=== PATIENT | male | born 1980 | race Caucasian/White ===

== ENCOUNTER → 2017-08-29 15:38 | Outpatient (CLI) | payer OTHER, SELFPAY ==
[2017-08-29 17:16] LABS: Absolute Lymphocyte Count 2.21 X10^3/ul (0.83-4.51); Absolute Neutrophil Count 3.2 X10^3/uL (2.0-7.7); Basophil# 0.02 X10^3/uL; Basophil% 0.3 % (0-1); Eosinophil# 0.41 X10^3/uL; Eosinophils% 6.5 % (0-5); Hematocrit 43.9 % (40-54); Hemoglobin 15.4 g/dl (13.0-16.5); Lymphocyte # 2.21 X10^3/ul (4.0); Lymphocyte % 35.1 % (19-41); Mean Corp Hgb Conc 35.1 g/gl (32-36); Mean Corpuscular Volume 91.3 fL (80-94); Mean Platelet Vol. 9.9 fl (6.2-12.0); Monocyte# 0.49 X10^3/uL; Monocyte% 7.8 % (0-10); Neutrophil # 3.15 X10^3/uL (2.7-7.7); Neutrophil % 50.1 % (47-70); Platelet Count 255 K/mm3 (150-450); RBC Distribution Width CV 13.3 % (11.6-14.6); RBC Distribution Width SD 43.9 fl (35.1-43.9); Red Blood Count 4.81 M/mm3 (4.6-6.2); White Blood Count 6.3 K/mm3 (4.4-11.0)
[2017-08-29 17:18] LABS: POSITIVE COUNT NO; POSITIVE DIFFERENTIAL NO; POSITIVE MORPHOLOGY NO
[2017-08-29 18:08] LABS: Thyroid Stim Hormone (TSH) 2.29 uIU/mL (0.358-3.74)
== END ==
PROVIDERS: Family Provider Family Medicine; PCP Family Medicine; Visit Provider Family Medicine
DX: R59.0 Localized enlarged lymph nodes (principal); R63.4 Abnormal weight loss
CPT/HCPCS: 36415; 84443; 85025

== ENCOUNTER 2017-12-27 08:24 | Emergency (ER) | payer OTHER, SELFPAY ==
[2017-12-27 08:25] VITALS: BP 187/101; PULSE 108; RESP 18; TEMP 36.6; O2SAT 96; BMI 29.9
--- NOTE | 2017-12-27 08:33 | RAD_ITS ---
STUDY: X-RAY - RIGHT HAND REASON FOR EXAM: Male, 37 years old. Thumb laceration TECHNIQUE: 3 view(s) of the hand. COMPARISON: None. FINDINGS: No radiopaque foreign bodies are seen in the soft tissues of the hand especially at the thumb. There are no acute fractures or dislocations and no pulmonary disease.. RAD/Hand Min 3 Views IMPRESSION: No radiopaque foreign bodies in the soft tissues of the hand. No fracture Electronically Signed: Delgado Miranda, at 9:04 EDT Tel , Service support ,
--- NOTE | 2017-12-27 08:40 | ED.VISSUMM ---
- ER Visit Summary Date of Service: 12/27/17 Chief Complaint: Right thumb laceration History of Present Illness: The patient is a 37 M who was walking down some steps and tripped and fell onto a toolbox and caught himself with his right hand. He sustained a laceration at the base of the right thumb. Has some mild pain. Denies any further symptoms. Last tetanus unknown Physical Examination: Vital signs reviewed. Right thumb exam reveals tenderness to the base of the right thumb. Pain with range of motion. He does have a 2.5 cm laceration to the right thumb base which goes into the webspace. Test Results: Right hand x-ray reveals no foreign body or fracture Emergency Department Course and Treatment: X-rays reveal no foreign bodies or fracture. Patient was given Advil and updated on his tetanus. Patient had laceration repaired. Lidocaine was used to anesthetize area. 8, 4-0 suture were placed. Good wound approximation. Patient will have these out in 7-10 dayss Treatment Plan: [] Disposition: Discharge Impression: Right thumb laceration, 2.5 cm Laceration repair by ED physician This note was generated with [employer] dictation software. It may contain incorrect words, spelling, and punctuation that were not noted in review of the chart prior to signing ED Disposition - Plan for ED Patient: Chief Complaint: Laceration Referrals: Bart Lauren MD [Primary Care Provider] -
[2017-12-27] MEDS: Diphth,Pertuss(Acell),Tet Vac 0.5 ML Vial IM (09:15)
[2017-12-27] MEDS: Ibuprofen 200 MG Tablet 400 MG PO (09:17)
--- NOTE | 2017-12-27 09:26 | ED.DEP ---
ED Disposition - Plan for ED Patient: Disposition: Home or Assisted Living Chief Complaint: Laceration Instructions: ED Laceration All Referrals: Bart Lauren MD [Primary Care Provider] -
[2017-12-27 09:44] VITALS: RESP 16
== END 2017-12-27 09:44 | disposition home or self-care (01) ==
PROVIDERS: Emergency Provider Emergency Medicine; Family Provider Family Medicine; PCP Family Medicine
DX: S61.011A Laceration without foreign body of right thumb without damage to nail, initial encounter (principal); W01.198A Fall on same level from slipping, tripping and stumbling with subsequent striking against other object, initial encounter; Y93.01 Activity, walking, marching and hiking; Y92.9 Unspecified place or not applicable; K21.9 Gastro-esophageal reflux disease without esophagitis
CPT/HCPCS: 12001; 73130; 90471; 90715; 99284; A4216

== ENCOUNTER → 2020-01-19 13:50 | Outpatient (CLI) | payer OTHER, SELFPAY ==
--- NOTE | 2020-01-19 13:55 | RAD_ITS ---
STUDY: X-RAY - THORACIC SPINE REASON FOR EXAM: Male, 39 years old. Thoracic back pain x 4 months TECHNIQUE: 3 view(s) of the thoracic spine were obtained. COMPARISON: None. FINDINGS: Normal kyphosis of the thoracic spine. There is no substantial scoliosis. Normal thoracic vertebrae and endplates. Normal disc space heights. The soft tissue structures are unremarkable. RAD/Thoracic Spine 3 Views IMPRESSION: Normal x-ray examination of the thoracic spine. Electronically Signed: Jose Guillen, at 15:12 EDT , Service support ,
--- NOTE | 2020-01-19 13:55 | RAD_ITS ---
STUDY: X-RAY CHEST REASON FOR EXAM: Male, 39 years old. Thoracic back pain x 4 months TECHNIQUE: PA and lateral views of the chest. COMPARISON: None. FINDINGS: Pectus excavatum. The lungs are clear and expanded. Scattered calcified granulomas. There is no demonstrated pleural abnormality. Normal size heart. Normal mediastinum and emma. Normal visualized pulmonary arteries. Normal visualized aortic arch and descending thoracic aorta. Normal visualized thoracic spine. Normal visualized ribs, clavicles, and shoulders. There is no demonstrated abnormality of the visualized soft tissue structures of the upper abdomen. RAD/Chest PA and Lateral IMPRESSION: Normal x-ray examination of the chest. Electronically Signed: Jose Guillen, at 15:12 EDT , Service support ,
== END ==
PROVIDERS: PCP Family Medicine; Referring Provider Family Medicine; Visit Provider Family Medicine
DX: M54.6 Pain in thoracic spine (principal)
CPT/HCPCS: 71046; 72072

== ENCOUNTER → 2020-11-29 08:26 | Outpatient (CLI) | payer OTHER, SELFPAY ==
--- NOTE | 2020-11-29 08:30 | RAD_ITS ---
STUDY: DOUBLE CONTRAST BARIUM ESOPHAGRAM REASON FOR EXAM: Male, 40 years old. DYSPHAGIA RADIATION DOSAGE (If Supplied By Facility): CTDIvol = ( ) mGy, DLP = ( ) mGycm. Individualized dose optimization techniques were used for this CT.? FLUOROSCOPY TIME (if supplied): ( 54 ) seconds TECHNIQUE: Air-contrast COMPARISON: None. FINDINGS: Swallowing was initiated normally. No nasopharyngeal reflux or aspiration. No Zenker''s diverticulum noted on the lateral view. Normal peristaltic activity is noted in the esophagus. No evidence of a hiatal hernia, there was some GE reflux with increased intrathoracic pressure. No stricture or mass lesion noted. 13 mm barium pill passed through the esophagus without difficulty. RAD/Esophagus Dual Contrast IMPRESSION: Minimal GE reflux otherwise unremarkable study Electronically Signed: Chadwick Sin MD at 9:55 EDT , Service support ,
== END ==
PROVIDERS: PCP Family Medicine; Referring Provider Otolaryngology; Visit Provider Otolaryngology
DX: R13.10 Dysphagia, unspecified (principal)
CPT/HCPCS: 74221

== ENCOUNTER → 2022-08-30 | Outpatient (CLI) | payer OTHER, SELFPAY ==
[2022-08-30 12:42] LABS: ALB/GLOB Ratio 1.1 RATIO (0.9-2.4); AST(SGOT) 29 U/L (15-37); Alanine Aminotransfer ALT/SGPT 30 U/L (16-61); Albumin, Serum 3.8 g/dL (3.2-5.0); Alkaline Phosphatase 57 U/L (45-117); Anion Gap 6 (5-15); BUN 16 mg/dL (7-18); BUN/Creat Ratio 17.1 RATIO (10-20); Calcium,Total 9.1 mg/dL (8.5-10.1); Chloride 105 mmol/L (98-107); Creatinine, Serum 0.93 mg/dL (0.70-1.30); EST Glomerular Filtration Rate 93 mL/min (>60); Est Glom Filt Rate - Afr Amer 113 mL/min (>60); Globulin 3.6 g/dL (2.2-4.2); Glucose 94 mg/dL (74-106); Potassium 4.8 mmol/L (3.5-5.1); Protein, Total 7.4 g/dL (6.4-8.2); Sodium Level 139 mmol/L (136-145)
[2022-08-30 12:44] LABS: Absolute Lymphocyte Count 1.56 X10^3/uL (0.83-4.51); Absolute Neutrophil Count 1.8 X10^3/uL (2.0-7.7); Basophil# 0.03 X10^3/uL; Basophil% 0.8 % (0-1); Eosinophil# 0.13 X10^3/uL; Eosinophils% 3.3 % (0-5); Hematocrit 42.7 % (40-54); Hemoglobin 14.1 g/dL (13.0-16.5); Lymphocyte # 1.56 X10^3/ul (0.83-4.51); Mean Corpuscular Hgb 30.6 pg (27.0-32.0); Mean Corpuscular Volume 92.6 fL (80-94); Mean Platelet Vol. 10.6 fl (6.2-12.0); Monocyte# 0.39 X10^3/uL; NRBC Flagged by Analyzer 0 % (0-5); Neutrophil # 1.78 X10^3/uL (2.7-7.7); Neutrophil % 45.6 % (47-70); Platelet Count 242 K/mm3 (150-450); RBC Distribution Width CV 13.4 % (11.6-14.6); RBC Distribution Width SD 45.6 fl (35.1-43.9); Red Blood Count 4.61 M/mm3 (4.6-6.2); White Blood Count 3.9 K/mm3 (4.4-11.0)
== END | disposition home or self-care (01) ==
PROVIDERS: PCP Family Medicine; Visit Provider Family Medicine
DX: I10 Essential (primary) hypertension (principal)
CPT/HCPCS: 36415; 80053; 85025

== ENCOUNTER → 2023-06-10 | Outpatient (CLI) | payer OTHER, SELFPAY ==
[2023-06-10 17:43] LABS: Absolute Lymphocyte Count 2.33 X10^3/uL (0.83-4.51); Absolute Neutrophil Count 3.2 X10^3/uL (2.0-7.7); Basophil# 0.03 X10^3/uL; Basophil% 0.5 % (0-1); Eosinophil# 0.14 X10^3/uL; Eosinophils% 2.2 % (0-5); Hematocrit 41.4 % (40-54); Lymphocyte # 2.33 X10^3/ul (0.83-4.51); Lymphocyte % 37.2 % (19-41); Mean Corp Hgb Conc 31.4 g/dL (32-36); Mean Corpuscular Hgb 28.5 pg (27.0-32.0); Mean Corpuscular Volume 90.8 fL (80-94); Mean Platelet Vol. 10.1 fl (6.2-12.0); Monocyte# 0.58 X10^3/uL; Monocyte% 9.3 % (0-10); NRBC Flagged by Analyzer 0 % (0-5); Neutrophil # 3.17 X10^3/uL (2.7-7.7); Neutrophil % 50.6 % (47-70); Platelet Count 275 K/mm3 (150-450); RBC Distribution Width CV 14.3 % (11.6-14.6); RBC Distribution Width SD 47.8 fl (35.1-43.9); Red Blood Count 4.56 M/mm3 (4.6-6.2); White Blood Count 6.3 K/mm3 (4.4-11.0)
[2023-06-10 18:03] LABS: AST(SGOT) 17 U/L (15-37); Alanine Aminotransfer ALT/SGPT 28 U/L (16-61); Albumin, Serum 3.7 g/dL (3.2-5.0); Alkaline Phosphatase 53 U/L (45-117); Anion Gap 6 (5-15); BUN 13 mg/dL (7-18); BUN/Creat Ratio 14.3 RATIO (10-20); Calcium,Total 8.8 mg/dL (8.5-10.1); Chloride 104 mmol/L (98-107); Creatinine, Serum 0.91 mg/dL (0.70-1.30); EST Glomerular Filtration Rate 96 mL/min (>60); Est Glom Filt Rate - Afr Amer 116 mL/min (>60); Globulin 3.8 g/dL (2.2-4.2); Glucose 85 mg/dL (74-106); Protein, Total 7.5 g/dL (6.4-8.2); Sodium Level 139 mmol/L (136-145)
== END | disposition home or self-care (01) ==
LOC: BFHLAB 15:10
PROVIDERS: PCP Family Medicine; Visit Provider Family Medicine
DX: I10 Essential (primary) hypertension (principal)
CPT/HCPCS: 36415; 80053; 85025

== ENCOUNTER → 2023-06-18 | Outpatient (CLI) | payer OTHER, SELFPAY ==
--- NOTE | 2023-06-18 11:58 | MRI_ITS ---
EXAM: MR LUMBAR SPINE WITHOUT INTRAVENOUS CONTRAST CLINICAL INDICATION: LOW BACK PAIN, w/o injury TECHNIQUE: Multiplanar and multisequence MR images of the lumbar spine without intravenous contrast. Magnetic field strength 1.5 T. COMPARISON: X-ray of the lumbar spine 04/30/2023. FINDINGS: VERTEBRAE: Unremarkable. Vertebral body heights are preserved. Normal vertebral bodies and posterior elements. Normal alignment. No spondylolisthesis. There is preservation of the normal lumbar lordosis. SPINAL CORD: Unremarkable. Normal position and signal intensity of the conus medullaris. SOFT TISSUES: Unremarkable. DISCS/SPINAL CANAL/NEURAL FORAMINA: L1-L2: Unremarkable. Normal disc height and morphology. Normal spinal canal and lateral recesses. Normal neuroforamina. L2-L3: Unremarkable. Normal disc height and morphology. Normal spinal canal and lateral recesses. Normal neuroforamina. L3-L4: Unremarkable. Normal disc height and morphology. Normal spinal canal and lateral recesses. Normal neuroforamina. L4-L5: Unremarkable. Normal disc height and morphology. Normal spinal canal and lateral recesses. Normal neuroforamina. L5-S1: Unremarkable. Normal disc height and morphology. Normal spinal canal and lateral recesses. Normal neuroforamina. MRI/Spine Lumbar (Routine) IMPRESSION: Unremarkable MRI of the lumbar spine. Electronically Signed: Cosntantino Christiansen MD at 20:49 EST ,
--- NOTE | 2023-06-18 12:00 | MRI_ITS ---
STUDY: MRI ARTHROGRAM OF THE LEFT HIP REASON FOR EXAM: Male, 43 years old. Pain, left hip and back pain without injury x 2-3 months, throbbing to sharp at times. TECHNIQUE: 7 mL of dilute Clariscan contrast was injected into the left hip joint. MRI was obtained in all 3 orthogonal planes. COMPARISON: None. FINDINGS: There is a suspected tear of the left anterior acetabular labrum (MINNIE T1 series 8 image 13). There is a multiseptated paralabral dissecting superiorly, overall measuring 0.6 cm AP, 0.7 cm transverse, and 4.5 cm craniocaudad (sagittal T2 series 6 images 15-18; coronal T2 series 4 images 14-18). Intact left hip joint without articular joint space narrowing. Normal acetabulum. Normal femoral head. Normal femoral neck and intratrochanteric region. There is no demonstrated fracture. Normal gluteus minimus, medius and iliopsoas tendons and distal insertions. There is no trochanteric, iliopsoas or iliopectineal bursitis. Normal superior and inferior pubic rami. Normal pubic symphysis. Normal ischial tuberosity. Normal origin of the hamstring tendons. Normal visualized iliac wing, sacroiliac joint, and sacral ala. Normal visualized soft tissue structures of the pelvis. MRI/Lower Ext/Jt Only/W Contrast IMPRESSION: Suspected tear of the left anterior acetabular labrum, with an adjacent 0.6 x 0.7 x 4.5 cm multiseptated paralabral cyst dissecting superiorly. Electronically Signed: Mark Laughlin MD at 14:51 EST ,
--- NOTE | 2023-06-18 12:50 | RAD_ITS ---
CLINICAL HISTORY: Male, 43 years old. Left hip arthrogram. PROCEDURE: ARTHROGRAM - LEFT HIP CONSENT: Procedure as well as the benefits and possible complications including infection and bleeding were explained to the patient. Informed consent was obtained. FLUOROSCOPY TIME (if supplied): (79 seconds) minutes/seconds. 23.76 mGy Injection Information: 10 cc of a dilute MRI contrast. Number of images obtained: One TECHNIQUE: (All elements of maximal sterile barrier technique followed, including US elements as applicable) The supine position. The overlying skin was prepped and draped in the usual sterile fashion. Following local anesthetic application, left. 2 cc of Isovue 300 was injected for confirmation. This, 10 cc of dilute MRI contrast was injected. The patient tolerated the procedure well. RAD/Arthrogram Hip w/ MRI IMPRESSION: Successful left hip arthrogram for MRI examination. The patient tolerated the procedure well. Electronically Signed: Jose Guillen MD at 13:35 EST ,
[2023-06-18] MEDS: Lidocaine 2% (5ml sdv) 5 ML VIAL.MPF (13:00)
[2023-06-18] MEDS: Iopamidol 10 ML in Syringe 1 EACH 600 ML INTRAARTIC (13:04)
[2023-06-18] MEDS: Gadoterate Meglumine Diluted 10 ML, Iopamidol 5 ML, Lidocaine 1% (20 ml mdv) 5 ML, Epin... INTRAARTIC (13:04)
== END | disposition home or self-care (01) ==
LOC: MRI 11:39
PROVIDERS: PCP Family Medicine; Referring Provider Physician Assistant Surgical; Visit Provider Physician Assistant Surgical
DX: N28.9 Disorder of kidney and ureter, unspecified (principal); M54.59 Other low back pain; M25.852 Other specified joint disorders, left hip
CPT/HCPCS: 27093; 72148; 73722; 77002; A9575; Q9967

== ENCOUNTER → 2025-01-11 | Outpatient (CLI) | payer OTHER, SELFPAY ==
[2025-01-11 15:51] LABS: Hematocrit 40.0 % (40-54); Hemoglobin 13.0 g/dL (13.0-16.5); Immature Granulocytes Count 0.010 X10^3/uL (0.0-0.0); Immature Reticulocyte Fraction 8.70 % (3.00-15.90); Mean Corp Hgb Conc 32.5 g/dL (32-36); Mean Corpuscular Volume 79.8 fL (80-94); Mean Platelet Vol. 9.6 fl (6.2-12.0); NRBC Flagged by Analyzer 0 % (0-5); Platelet Count 367 K/mm3 (150-450); RBC Distribution Width CV 18.1 % (11.6-14.6); RBC Distribution Width SD 52.2 fl (35.1-43.9); Red Blood Count 5.01 M/mm3 (4.6-6.2); Reticulocyte Count 0.67 % (0.5-1.5); White Blood Count 4.3 K/mm3 (4.4-11.0)
[2025-01-11 17:06] LABS: FOLATES,SERUM (FOLIC ACID) 5.86 ng/mL (4.60-34.80); Iron 30 ug/dL (65-175); Iron Binding Capacity,Total 448 ug/dL (250-450); Iron Binding Capacity,Unsat 418 ug/dL (228-428)
[2025-01-11 17:08] LABS: Ferritin 15 ng/mL (37-417); Vitamin B12 326 pg/mL (180-914)
== END | disposition home or self-care (01) ==
PROVIDERS: PCP Family Medicine; Visit Provider Family Medicine
DX: D64.9 Anemia, unspecified (principal)
CPT/HCPCS: 36415; 82607; 82728; 82746; 83540; 83550; 85025; 85045

== ENCOUNTER 2025-03-10 09:22 | Day surgery (SDC) | payer OTHER, SELFPAY ==
--- NOTE | 2025-03-09 13:46 | PAT.ANE_ITS ---
Pre-Assessment Diagnosis/Proposed Procedure Planned Operative Procedure(s): EGD/CSCOPE Anesthesia History Anesthesia History - data entry representative: Anesthesia History - data entry representative Hx Hospitalization No 03/09/25 09:49 Any Problems With Anesthesia No 03/09/25 09:49 Cholinesterase deficiency No 03/09/25 09:49 You/Your Family Experience No 03/09/25 09:49 fever (hyperthermia) with Relationship Recent Exposure to Contagious Disease Does patient have nerve No 03/09/25 09:49 stimulator Patient instructed to have device shut off --Does patient have Pacemaker or ICD? When Was Last Pacemaker Check QUESTION #4 FULL TEXT: You/Your Family Experience fever (hyperthermia) with Anesthesia Last Oral Intake Last Oral intake: Last Oral Intake NPO since Meds taken in AM with sips of water? Meds patient instructed to take am of surgery PONV PONV - data entry representative: PONV - data entry representative Female No 03/09/25 09:49 HX of Motion Sickness No 03/09/25 09:49 HX of N/V After Surgery No 03/09/25 09:49 Non-Smoker Yes 03/09/25 09:49 Duration of Surgery greater No 03/09/25 09:49 than 60 minutes Number of Risk Factors 1 03/09/25 09:49 PONV Score Low Risk 03/09/25 09:49 Height & Weight Height & Weight: Anesthesia: Height & Weight Height 5 ft 7 in 01/17/25 09:08 Respiratory Assessment Respiratory Assessment - data entry representative: Respiratory Tract Infection Hx - data entry representative Hx Respiratory Tract Infection No 03/09/25 09:49 STOP Sleep Apnea STOP Sleep Apnea - data entry representative: STOP Sleep Apnea - data entry representative Hx Hypertension Yes: CONTROLLED WITH MED 03/09/25 09:49 Hx Sleep Apnea No 03/09/25 09:49 CPAP BIPAP Do you snore loudly (louder No 03/09/25 09:49 than talking or can be heard Do you often feel tired/ No 03/09/25 09:49 fatigued/ sleepy during daytime? Has anyone observed you stop No 03/09/25 09:49 breathing during sleep? STOP Results Negative 03/09/25 09:49 QUESTION #5 FULL TEXT : Do you snore loudly (louder than talking or can be heard through closed doors)? Tobacco Use History Tobacco Use History - data entry representative: Tobacco Use History - data entry representative Tobacco Use Smoking Status Former smoker 03/09/25 09:49 Hx Tobacco Use No 03/09/25 09:49 Years Smoking Packs Smoked per Day Smoking Cessation Date was Yes - quit smoking within 15 03/09/25 09:49 within the last 15 years years Hx Smoking Cessation Date 07/14/17 03/09/25 09:49 Hx Smoking Cessation Counseling Hematologic Medial History Hematologic Hx - data entry representative: Hematologic Medical Hx - rn documentation Hx of Blood Transfusion No 03/09/25 09:49 Hx of Transfusion in last 3 No 03/09/25 09:49 Months Date of Last Transfusion (if within last 3 months) Ever experience any problems No 03/09/25 09:49 with transfusion(s)? Specify any problems Hx of Preganancy in last 3 N/A 03/09/25 09:49 Months Nurse Filling Out Transfusion DSCHRIBER 03/09/25 09:49 & Questions: Date: 03/09/25 03/09/25 09:49 Time: 09:50 03/09/25 09:49 Patient unable to answer at this time (ie. confused, unrespo /Reproduction History /Reproductive History - data entry representative: /Reproductive Hx- data entry representative Hx Now No 03/09/25 09:49 Gestational Age (in weeks): EDC: Hx Hx Para Hx Section SAB No 03/09/25 09:49 [facility] Medical History (Updated 03/09/25 @ 09:55 by Lizette Peoples) Alcohol use Arthritis Low iron History of ulceration Former smoker History of pain when walking History of stress test History of gastroesophageal reflux (GERD) Hypertension History of fracture of arm Home Medications ?Medication ?Instructions ?Recorded ?Last Taken ?Type amlodipine 5 mg tablet 5 mg PO DAILY 03/08/21 Unkno wn History losartan 25 mg tablet 25 mg PO DAILY 04/30/23 Unkn own History bee pollen 500 mg tablet 1,000 mg PO .QD 01/17/25 History ferrous sulfate 325 mg (65 mg 325 mg PO QDAY 01/17/25 03/08/25 History iron) tablet (Feosol) loratadine 10 mg tablet (Claritin) 10 mg PO QDAY 01/17 Unknown History pantoprazole 40 mg tablet,delayed 20 mg PO DAILY 01/17 Unknown History release budesonide 0.5 mg/2 mL suspension 0.5 mg inhalation DA CASSIA 03/09/25 Unknown History for nebulization Allergy/AdvReac Type Severity Reaction Status Date / Time No Known Allergies Allergy Verified 03/09/25 09:46 Family History Father Brain cancer Lung cancer Grandmother Brain cancer Other Heart disease Hypertension Surgical History (Updated 03/09/25 @ 09:55 by Lizette Peoples) History of esophagogastroduodenoscopy (EGD) History of hip surgery History of wisdom tooth extraction Social History Smoking Status: Former smoker alcohol intake: current alcohol intake frequency: a few times a week Alcohol type: beer what type of physical activity do you participate in: walking and bicycling frequency: daily Audit: Pertinent Findings Pertinent Findings EKG Perinent findings: EKG dated 02/25/2017: Normal sinus rhythm, left posterior fascicular block, abnormal EKG. Recommendation Anesthesia Recommendation Anesthesia recommendation: OPTIMIZED for anesthesia
[2025-03-10] VITALS (7 sets, daily range): BP systolic 127–154; BP diastolic 88–95; PULSE 52–73; RESP 16; TEMP 36.3–36.7; O2SAT 97–100; BMI 26.9
[2025-03-10] MEDS: Lactated Ringers 1,000 ML 15 ML IV (09:52)
--- NOTE | 2025-03-10 10:04 | PCM.HP.STD ---
HPI - General General Date of Admission: 03/10/25 Date of Service: 03/10/25 Chief Complaint: anemia HPI Narrative JAVI RIVERA, is a 44 M who presents Chief Complaint: anemia Details: 44-year-old male presents for initial consultation of new onset iron deficiency without overt anemia with a history of eosinophilic esophagitis and reflux. I have reviewed primary care records which indicate he had a negative Cologuard at 43 years old. Labs completed 01/11/2025 reveal vitamin B12 of 326, ferritin 15, iron 30 with 7% saturation, folate 5.86, hemoglobin 13, MCV 79.8. Esophagram: 11/29/2020 Minimal GE reflux otherwise unremarkable study Recently started on Fe supplement - was refused for blood donation - April 2024 HGB 14.3 - December 2023 HGB 14.9 - he is on Budesonide swallow for EoE, daily since 2020, prescribed by an customer counter associate - denies ever having trouble swallowing Melena: denies Hematochezia: denies Hematuria: denies Hematemesis: denies Epistaxis: denies HB: controlled with pantoprazole 20mg daily Weight loss: denies Fevers: denies Night sweats: denies Kidney disease: denies NSAIDS: Naproxen daily Anticoagulants: denies Bruising: mild Fatigue: denies Vegetarian: denies, does not eat a lot of red meat Blood donation: last donation August 2024, was declined to donate blood December 2024 SOB: denies ABD pain: denies - H/O gastrointestinal surgeries (Gastric Bypass): COLON: EGD: (Celiac labs/Bx) 2020 for GERD - Family h/o celiac disease: denies - He is a former smoker and consumes alcohol minimally a few times a week. He has a history of hip surgeries, including two labrum repairs and a microfracture. [facility] Medical History Alcohol use Arthritis Low iron History of ulceration Former smoker History of pain when walking History of stress test History of gastroesophageal reflux (GERD) Hypertension History of fracture of arm Home Medications ?Medication ?Instructions ?Recorded ?Last Taken ?Type amlodipine 5 mg tablet 5 mg PO DAILY 03/08/21 03/10/25 History losartan 25 mg tablet 25 mg PO DAILY 04/30/23 03/10/25 History bee pollen 500 mg tablet 1,000 mg PO .QD 01/17/25 03/02/25 History ferrous sulfate 325 mg (65 mg 325 mg PO QDAY 01/17/25 03/08/25 History iron) tablet (Feosol) loratadine 10 mg tablet (Claritin) 10 mg PO QDAY 01/17/25 Unknown History pantoprazole 40 mg tablet,delayed 20 mg PO DAILY 01/17/25 03/10/25 History release budesonide 0.5 mg/2 mL suspension 0.5 mg inhalation DAILY 03/09/25 Unknown History for nebulization Allergy/AdvReac Type Severity Reaction Status Date / Time No Known Allergies Allergy Verified 03/10/25 09:38 Family History Father Brain cancer Lung cancer Grandmother Brain cancer Other Heart disease Hypertension Surgical History History of esophagogastroduodenoscopy (EGD) History of hip surgery History of wisdom tooth extraction Social History Smoking Status: Former smoker alcohol intake: current alcohol intake frequency: a few times a week Alcohol type: beer what type of physical activity do you participate in: walking and bicycling frequency: daily ROS Constitutional Constitutional: Denies fatigue, fever(s), poor appetite, weight gain or weight loss Gastrointestinal Gastrointestinal: Denies belching, bloating, change in bowel habits, change in stool character, chewing difficulty, coffee ground emesis, constipation, cramping, diarrhea, dyspepsia, dysphagia, early satiety, excessive flatus, fecal incontinence, heartburn, hematemesis, hematochezia, hemorrhoids, loose stools, melena, nausea, odynophagia, rectal bleeding, tenesmus, vomiting or weight changes Vital Signs Vital Signs Vital Signs: 03/10/25 09:40 03/10/25 09:40 Temperature 98.1 F Temperature Source Temporal Pulse Rate 68 Respiratory Rate 16 Respiratory Pattern Normal Blood Pressure 154/95 H Blood Pressure Mean 114 Blood Pressure Source Monitor Blood Pressure Position Semi-Fowlers Blood Pressure Location Left Arm Pulse Ox 100 Oxygen Delivery Method Room Air Weight Weight: 171 lb 15.369 oz Body Mass Index (BMI) 26.9 Physical Exam Const alert, oriented x3, no apparent distress and healthy appearing General Appearance: cooperative GI normal to inspection, nondistended, normoactive bowel sounds, soft to palpation, non-tender and non-distended Percussion: normal to percussion Rectal Exam: deferred Assessment & Plan Assessment/Plan (1) GERD (gastroesophageal reflux disease): (2) Eosinophilic esophagitis: (3) Iron deficiency anemia: PLAN: Assessment and Plan Assessment and Plan (1) Iron deficiency anemia: Status: Acute Plan: The patient will undergo bidirectional endoscopy to investigate potential sources of gastrointestinal bleeding, such as gastritis, ulcers, polyps, or arteriovenous malformations. The patient has started iron supplementation and should continue this regimen, ensuring separation from pantoprazole intake to optimize absorption. (2) Eosinophilic esophagitis: Status: Acute Comment: Initially diagnosed in 2020 (records release signed for previous biopsy findings) Plan: A repeat endoscopy is planned to reassess the status of eosinophilic esophagitis and evaluate the effectiveness of the current treatment regimen, including budesonide. The patient should continue the current medication regimen, including pantoprazole and budesonide, to manage symptoms and prevent complications such as strictures. (3) GERD (gastroesophageal reflux disease): Status: Acute Plan: The patient should continue pantoprazole to manage GERD symptoms and prevent potential gastrointestinal complications from naproxen use. Medications: New sod sulf-pot chloride-mag sulf 1.479-0.188- 0.225 gram (Sutab) as directed for split dose bowel prep 24 tabs 0RF Discontinued pantoprazole Discontinued Reason: Duplicate Order 20 mg PO QDAY Plan The patient is a 44-year-old male with a history of eosinophilic esophagitis presenting with iron deficiency anemia. His hemoglobin levels have decreased from 14.9 g/dL in December 2023 to 12.7 g/dL recently, indicating a trend towards anemia. The patient has been on pantoprazole for GERD, which may mask symptoms of gastrointestinal bleeding potentially exacerbated by naproxen use. The eosinophilic esophagitis was diagnosed in 2020, and the patient has been on a regimen of pantoprazole and budesonide. The patient reports resolution of symptoms such as globus sensation with the use of budesonide. The plan includes a repeat endoscopy to assess the current status of eosinophilic esophagitis as well as new onset anemia and a colonoscopy to investigate potential sources of gastrointestinal bleeding. Patient Instructions: - Continue taking iron supplements daily, ensuring they are taken at least an hour apart from pantoprazole. - Prepare for the upcoming colonoscopy and endoscopy by following the provided instructions, including dietary restrictions and medication adjustments. - Maintain current medication regimen for eosinophilic esophagitis, including pantoprazole and budesonide. - Ensure gluten intake daily for at least two weeks before the endoscopy to ensure accurate biopsy results. - Follow-up in office post procedure.
--- NOTE | 2025-03-10 10:05 | PCM.PRE.AN2 ---
ASA Classification* ASA Classification ASA Classification: 2 Assessment & Plan Anesthesia* Anesthesia Assessment Anesthesia Assessment: Discussed sedation and/or anesthesia options, risks, benefits, and alternatives with patient/parents/legal guardian/POA. Questions invited. The patient/parents/legal guardian/POA seems to understand and agrees to proceed with anesthesia plan. Reviewed the physical assessment, medical history, allergy history and patient home medications list prior to surgery/procedure/anesthetic and documented any changes. Performed airway and anesthesia risk assessments. Anesthesia Type Anesthesia Type: MAC History Source History Obtained from:: Patient and Chart Anesthesia Focused Assessment* Temperature: 98.1 F Pulse Rate: 68 Blood Pressure: 154/95 Respiratory Rate: 16 Pulse Ox: 100 Oxygen Delivery Method: Room Air Airway Assessment Mouth opens: >3 cm Mallampati Score: II Neck Range of motion (ROM): Full ROM Labs Anesthesia Preop lab: CBC WBC 4.3 K/mm3 (4.4-11.0) L 01/11/25 13:12 01/11/25 RBC 5.01 M/mm3 (4.6-6.2) 01/11/25 13:12 01/11/25 Hgb 13.0 g/dL (13.0-16.5) 01/11/25 13:12 01/11/25 Hct 40.0 % (40-54) 01/11/25 13:12 01/11/25 Plt Count 367 K/mm3 (150-450) 01/11/25 13:12 01/11/25 CHEMISTRY Potassium 4.0 mmol/L (3.5-5.1) 06/10/23 15:10 06/10/23 Sodium 139 mmol/L (136-145) 06/10/23 15:10 06/10/23 BUN 13 mg/dL (7-18) 06/10/23 15:10 06/10/23 Creatinine 0.91 mg/dL (0.70-1.30) 06/10/23 15:10 06/10/23 Glucose 85 mg/dL (74-106) 06/10/23 15:10 06/10/23 TSH 2.29 uIU/mL (0.358-3.74) 08/29/17 15:40 08/29/17 COAG Pre-Assessment Diagnosis/Proposed Procedure Planned Operative Procedure(s): EGD/CSCOPE Anesthesia History 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 When Was Last Pacemaker Check QUESTION #4 FULL TEXT: You/Your Family Experience fever (hyperthermia) with Anesthesia Last Oral Intake Last Oral intake: Last Oral Intake NPO since 06:00 03/10/25 09:40 Meds taken in AM with sips of Yes 03/10/25 09:40 water? 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 Female No 03/09/25 09:49 HX of Motion Sickness No 03/09/25 09:49 HX of N/V After Surgery No 03/09/25 09:49 Non-Smoker Yes 03/09/25 09:49 Duration of Surgery greater No 03/09/25 09:49 than 60 minutes Number of Risk Factors 1 03/09/25 09:49 PONV Score Low Risk 03/09/25 09:49 Height & Weight Height & Weight: Anesthesia: Height & Weight Height 5 ft 7 in 03/10/25 09:40 Weight: 78 kg 03/10/25 09:40 Body Mass Index (BMI) 26.9 03/10/25 09:40 Respiratory Assessment Respiratory Assessment - mining plant operator: Respiratory Tract Infection Hx - 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 Has anyone observed you stop No 03/09/25 09:49 breathing during sleep? STOP Results Negative 03/09/25 09:49 QUESTION #5 FULL TEXT : Do you snore loudly (louder than talking or can be heard through closed doors)? 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 Specify any problems Hx of Preganancy in last 3 N/A 03/09/25 09:49 Months Nurse Filling Out Transfusion DSCHRIBER 03/09/25 09:49 & Questions: Date: 03/09/25 03/09/25 09:49 Time: 09:50 03/09/25 09:49 Patient unable to answer at this time (ie. 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: /Reproductive Hx- mining plant operator Hx Now No 03/09/25 09:49 Gestational Age (in weeks): EDC: Hx Hx Para Hx Section SAB No 03/09/25 09:49 Active Medications Active Medications: Current Medications Generic Name Dose Route Start Last Admin Trade Name Freq PRN Reason Stop Dose Admin Lactated Ringer's 1,000 mls @ 15 mls/hr 03/10/25 10:00 03/10/25 09:52 IV 15 mls/hr .Q48H DIVYA Administration PFSH Medical History Alcohol use Arthritis Low iron History of ulceration Former smoker History of pain when walking History of stress test History of gastroesophageal reflux (GERD) Hypertension History of fracture of arm Home Medications ?Medication ?Instructions ?Recorded ?Last Taken ?Type amlodipine 5 mg tablet 5 mg PO DAILY 03/08/21 03/10/25 History losartan 25 mg tablet 25 mg PO DAILY 04/30/23 03/10/25 History bee pollen 500 mg tablet 1,000 mg PO .QD 01/17/25 03/02/25 History ferrous sulfate 325 mg (65 mg 325 mg PO QDAY 01/17/25 03/08/25 History iron) tablet (Feosol) loratadine 10 mg tablet (Claritin) 10 mg PO QDAY 01/17/25 Unknown History pantoprazole 40 mg tablet,delayed 20 mg PO DAILY 01/17/25 03/10/25 History release budesonide 0.5 mg/2 mL suspension 0.5 mg inhalation DAILY 03/09/25 Unknown History for nebulization Allergy/AdvReac Type Severity Reaction Status Date / Time No Known Allergies Allergy Verified 03/10/25 09:38 Family History Father Brain cancer Lung cancer Grandmother Brain cancer Other Heart disease Hypertension Surgical History History of esophagogastroduodenoscopy (EGD) History of hip surgery History of wisdom tooth extraction Social History Smoking Status: Former smoker alcohol intake: current alcohol intake frequency: a few times a week Alcohol type: beer what type of physical activity do you participate in: walking and bicycling frequency: daily Review of Systems (Anesthesia) ROS Narrative System reviewed and no additional complaints, except as documented.
--- NOTE | 2025-03-10 10:15 | COLBX_PTH ---
PATIENT: JAVI RIVERA LOC: EN U#:[id number] AGE/SX: 44/M ROOM: RE03/10/[address]: Dr. Suresh Reyes DO : 1980 BED: DIS: 03/10/2025 SPEC #: [id number] RECD: 03/10/25 12:03 STATUS: FRANCES REServando #: [id number] RENE: 03/10/25 10:[address]: Suresh Reyes DEPT: SURGICAL PATHOLOGY RECD BY: Melvin Montemayor ENTERED: 03/10/25 13:54 SP TYPE: COLON BX OT DR: Dr. Jasmyn Pcaker MD Tissues: A - Cecum, NOS Procedures: Surgery Specimen Level IV HEADER OPERATION: Colonoscopy, EGD, electrohemostasis PRE-OP DIAGNOSIS: GERD, eosinophilic esophagitis, iron deficiency anemia TISSUE SUBMITTED: A- Cecal polyp MICROSCOPIC DIAGNOSIS A. Cecum, polyp, biopsy: Tubular adenoma. MICROSCOPIC DESCRIPTION Slides are reviewed. GROSS DESCRIPTION A. Received in fixative is one container labeled with the patient's name and designated Cecal polyp. The specimen consists of two irregular fragments of light bright soft tissue that measure 0.1 and 0.3 cm. The specimen is totally submitted in one cassette. VT 03/10/2025 CPT:21897
--- OUTSIDE RECORDS SUMMARY | 2025-03-10 10:52 | XMS RPT_ITS | CCD ---
Author Organization [facility] Care Team Providers Care Health Informatics Specialist Name Role Phone Dr. Jasmyn Packer Primary Care Provider [phone] Jasmyn Packer Referring Provider [phone] Dr. Viji Pope Attending Provider [phone] Kenji Leiva Attending Provider [phone] Jasmyn Packer MD Primary Care Provider Dr. Jasmyn Packer MD Attending Provider [phone] Dr. Jasmyn Packer MD Referring Provider [phone] Johnny THURSTONCTigist Attending Provider Viji Pope Attending Unavailable Jasmyn Packer Primary Care Unavailable Jasmyn Packer Referring Unavailable Friend, Suresh Attending Unavailable Jasmyn Packer Referring Unavailable Jasmyn Packer Primary Care Unavailable Jasmyn Packer Primary Care Unavailable Viji Pope Attending Unavailable Jasmyn Packer Referring Unavailable Jasmyn Packer Primary Care Unavailable Viji Pope Attending Unavailable Jasmyn Packer Referring Unavailable Tigist Turner Attending Unavailable Jasmyn Packer Referring Unavailable Jasmyn Packer Primary Care Unavailable Jasmyn Packer Primary Care Unavailable Jasmyn Packer Attending Unavailable Medications Current Medications Medication Drug Class(es) Dates Sig (Normalized) Sig (Original) amLODIPine 5 mg oral tablet (5 sources) Dihydropyridine Calcium Channel Art Start: 03-08-2021 take 1 tablet by mouth once daily Amlodipine 5 mg tablet Active 5 mg PO DAILY March 08, 2021 12:00am Bee Pollen 500 mg tablet (2 sources) Start: 01-17-2025 take 1 tablet by mouth once daily Bee Pollen 500 mg tablet Active 1000 mg PO .QD January 17, 2025 12:00am ferrous sulfate 325 mg oral tablet (2 sources) Start: 01-17-2025 take 1 tablet by mouth once daily Ferrous Sulfate (Feosol) 325 mg (65 mg iron) tablet Active 325 mg PO daily January 17, 2025 12:00am loratadine 10 mg oral tablet (2 sources) Start: 01-17-2025 take 1 tablet by mouth once daily Loratadine (Claritin) 10 mg tablet Active 10 mg PO daily January 17, 2025 12:00am losartan potassium 25 mg oral tablet (4 sources) Angiotensin 2 Receptor Art Start: 04-30-2023 Losartan 25 mg tablet Active mg PO April 30, 2023 12:00am Start: 04-30-2023 Losartan Activ e MG PO April 29, 2023 11:00pm naproxen 375 mg oral tablet (2 sources) Nonsteroidal Anti-inflammatory Drug Start: 01-17-2025 take 2 tablets by mouth once daily Naproxen 375 mg tablet Active 750 mg PO daily January 17, 2025 12:00am pantoprazole 40 mg delayed release oral tablet (9 sources) Proton Pump Inhibitor Start: 01-17-2025 Pantoprazole 40 mg tablet,delayed release (DR/EC) Active 20 mg PO DAILY January 17, 2025 8:56am Start: 01-17-2025 End: 01-17-2025 take 1 tablet by mouth once daily Pantoprazole 20 mg tablet,delayed release (DR/EC) Discontinued 20 mg PO daily January 17, 2025 12:00am January 17, 2025 9:18am Start: 03-08-2021 End: 01-17-2025 take 1 tablet by mouth once daily Pantoprazole 40 mg tablet,delayed release (DR/EC) Discontinued 40 mg PO DAILY March 08, 2021 12:00am January 17, 2025 9:00am Sod Sulf-Pot Chloride-Mag Lynn lf (2 sources) Start: 01-17-2025 Sod Sulf-Pot C hloride-Mag Sulf (Sutab) 1.479-0.188- 0.225 gram tablet Active 0 PO per package directions 24 0 January 17, 2025 12:00am as directed for split dose bowel prep Completed/Discontinued Medications Medication Drug Class(es) Dates Sig (Normalized) Sig (Original) cetirizine hydrochloride 10 mg disintegrating oral tablet (5 sources) Histamine-1 Receptor Antagonist Start: 02-25-2017 End: 03-08-2021 take 1 tablet by mouth once daily Cetirizine (Zyrtec) 10 MG tablet,disintegrat ing Discontinued 10 mg PO DAILY 14 0 February 25, 2017 12:00am March 08, 2021 3:11pm esomeprazole 40 mg delayed release oral capsule (5 sources) Proton Pump Inhibitor Start: 02-25-2017 End: 03-08-2021 take 1 capsule by mouth every week Esomeprazole Magnesium (Nexium) 40 MG capsule Discontinued 40 mg PO EVERY WEEK February 25, 2017 12:00am March 08, 2021 3:11pm Problems Active Problems Problem Classification Problem Date Documented Da te Episodic/Chronic Deficiency and other anemia (4 sources) Iron deficiency anemia; Translations: [Iron deficiency anemia, unspecified] 01-17-2025 Episodic Deficiency and other anemia (1 source) Iron deficiency anemia, unspecified; Translations: [Iron deficiency anemia, unspecified] Onset: 01-17-2025 Episodic Deficiency and other anemia (1 source) Anemia, unspecified; Translations: [Anemia, unspecified] Onset: 01-18-2025 Episodic Esophageal disorders (10 sources) Eosinophilic esophagitis; Translations: [Eosinophilic esophagitis] Onset: 01-17-2025 01-17-2025 Chronic Comment on above: Initially diagnosed in 2020 (records release signed for previous biopsy findings) Essential hypertension (5 sources) Hypertensive disorder; Translations: [Essential (primary) hypertension] 03-08-2021 Chronic Other bone disease and musculoskeletal deformities (20 sources) Segmental and somatic dysfunction; Translations: [Segmental and somatic dysfunction of cervical region] 03-27-2021 Episodic Other non-traumatic joint disorders (2 sources) Hip pain; Translations: [Pain in left hip] 04-12-2024 Episodic Other upper respiratory disease (5 sources) Seasonal allergy; Translations: [Other seasonal allergic rhinitis] 03-08-2021 Chronic Past or Other Problems Problem Classification Problem Date Documented Da te Episodic/Chronic Other bone disease and musculoskeletal deformities (7 sources) Segmental and somatic dysfunction of lumbar region; Translations: [Nonallopathic lesions, lumbar region] Onset: 04-20-2024 04-30-2023 Episodic Other bone disease and musculoskeletal deformities (7 sources) Segmental and somatic dysfunction of pelvic region; Translations: [Nonallopathic lesions, pelvic region] Onset: 04-20-2024 04-30-2023 Episodic Other bone disease and musculoskeletal deformities (5 sources) Segmental and somatic dysfunction of thoracic region; Translations: [Nonallopathic lesions, thoracic region] Onset: 04-20-2024 05-13-2023 Episodic Other bone disease and musculoskeletal deformities (1 source) Segmental and somatic dysfunction of cervical region; Translations: [Segmental and somatic dysfunction of cervical region] Onset: 04-20-2024 Episodic Spondylosis; intervertebral disc disorders; other back problems (20 sources) Backache; Translations: [Dorsalgia, unspecified] Onset: 04-08-2024 03-08-2021 Episodic Results Test Name Value Interpretation Reference Range Facility MR/PATELVA 03-09-2025 MR/PAT.[facility] Medical Records Department [address] [place] [address] PAT - Anesthesia 03/09/25 1346 MR#: [id number] Acct: [id number] Name: MARIO RIVERA Rep #: [id number] : 1980 44 From: Ryder Bustillos MD PCP: Dr. Jasmyn Packer MD Status:PRE [facility] Y Race: C Location: EN Pre-Assessment Diagnosis/Proposed Procedure Planned Operative Procedure(s): EGD/CSCOPE Anesthesia History Anesthesia History - server administrator: Anesthesia History - server administrator Hx Hospitalization No 03/09/25 09:49 Any Problems With Anesthesia No 03/09/25 09:49 Cholinesterase deficiency No 03/09/25 09:49 You/Your Family Experience No 03/09/25 09:49 fever (hyperthermia) with Relationship Recent Exposure to Contagious Disease Does patient have nerve No 03/09/25 09:49 stimulator Patient instructed to have device shut off --Does patient have Pacemaker or ICD? When Was Last Pacemaker Check QUESTION #4 FULL TEXT: You/Your Family Experience fever (hyperthermia) with Anesthesia Last Oral Intake Last Oral intake: Last Oral Intake NPO since Meds taken in AM with sips of water? Meds patient instructed to take am of surgery PONV PONV - server administrator: PONV - server administrator Female No 03/09/25 09:49 HX of Motion Sickness No 03/09/25 09:49 HX of N/V After Surgery No 03/09/25 09:49 Non-Smoker Yes 03/09/25 09:49 Duration of Surgery greater No 03/09/25 09:49 than 60 minutes Number of Risk Factors 1 03/09/25 09:49 PONV Score Low Risk 03/09/25 09:49 Height Weight Height Weight: Anesthesia: Height Weight Height 5 ft 7 in 01/17/25 09:08 Respiratory Assessment Respiratory Assessment - server administrator: Respiratory Tract Infection Hx - server administrator Hx Respiratory Tract Infection No 03/09/25 09:49 STOP Sleep Apnea STOP Sleep Apnea - server administrator: STOP Sleep Apnea - server administrator Hx Hypertension Yes: CONTROLLED WITH MED 03/09/25 09:49 Hx Sleep Apnea No 03/09/25 09:49 CPAP BIPAP Do you snore loudly (louder No 03/09/25 09:49 than talking or can be heard Do you often feel tired/ No 03/09/25 09:49 fatigued/ sleepy during daytime? Has anyone observed you stop No 03/09/25 09:49 breathing during sleep? STOP Results Negative 03/09/25 09:49 QUESTION #5 FULL TEXT : Do you snore loudly (louder than talking or can be heard through closed doors)? 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 Specify any problems Hx of Preganancy in last 3 N/A 03/09/25 09:49 Months Nurse Filling Out Transfusion DSCHRIBER 03/09/25 09:49 Questions: Date: 03/09/25 03/09/25 09:49 Time: 09:50 03/09/25 09:49 Patient unable to answer at this time (ie. confused, unrespo /Reproducti on History /Reproducti ve History - server administrator: /Reproducti ve Hx- server administrator Hx Now No 03/09/25 09:49 Gestational Age (in weeks): EDC: Hx Hx Para Hx Section SAB No 03/09/25 09:49 [facility] Medical History (Updated 03/09/25 @ 09:55 by Lizette Peoples) Alcohol use Arthritis Low iron History of ulceration Former smoker History of pain when walking History of stress test History of gastroesophageal reflux (GERD) Hypertension History of fracture of arm Home Medications ???Medication ???Instructions ???Recorded ???Last Taken ???Type amlodipine 5 mg tablet 5 mg PO DAILY 03/08/21 Unknown His tory losartan 25 mg tablet 25 mg PO DAILY 04/30/23 Unknown Hi story bee pollen 500 mg tablet 1,000 mg PO .QD 01/17/25 03/02/25 History ferrous sulfate 325 mg (65 mg 325 mg PO QDAY 01/17/25 03/08/25 H istory iron) tablet (Feosol) loratadine 10 mg tablet (Claritin) 10 mg PO QDAY 01/17/25 Unknown H istory pantoprazole 40 mg tablet,delayed 20 mg PO DAILY 01/17/25 Unknown H istory release budesonide 0.5 mg/2 mL suspension 0.5 mg inhalation DAILY 03/09/25 U (more content not included)... Normal [facility] Gastroenterology Visit Repor ton 01-17-2025 Gastroenterology Visit Report [facility] Gastroenterology [address] [place] [address] OFFICE VISIT Date of Service: 01/17/25 MR#: [id number] Acct: [id number] Name: MARIO RIVERA Rep #: [id number] : 1980 Provider: YARED dewey Age/Sex: 44/M Location: [facility] [place].[facility] Status: Signed with Addenda ADDENDUM by YARED Turner on 02/22/25 at 0931 HPI Details: MARIO RIVERA, is a 44 M who presents to the office today for Addendum Records received from previous GI and reviwed: EGD 12/29/2020 ([facility]) normal looking esophagus; Biopsy with increased eosinophils up to 20/hpf 02/22/25 0931 Date Tigist Turner cc: Dr. Jasmyn Packer MD * Signed Intake Vital Signs 04/08/24 14:06 01/17/25 09:08 Height 5 ft 7 in 5 ft 7 in Weight: 183 lb 2 oz BMI 28.6 BP 154/98 H 156/96 H Respiration 16 Pulse 64 Temp 97.8 F Temp Source Temporal Pulse Oximetry (%) 95 Oxygen Delivery Method room air Intake Visit Reasons: NEW Anemia / EOSINOPHILIC ESOPHAGITIS REFLUX Chief Complaint: anemia Allergies No Known Allergies Allergy (Verified 04/20/24 15:35) Medications ???Medication ???Instructions ???Recorded ???Confirmed ???Type amlodipine 5 mg tablet 5 mg PO DAILY 03/08/21 01/17/25 Hi story losartan 25 mg tablet mg PO 04/30/23 01/17/25 History bee pollen 500 mg tablet 1,000 mg PO .QD 01/17/25 01/17/25 History ferrous sulfate 325 mg (65 mg 325 mg PO QDAY 01/17/25 01/17/25 H istory iron) tablet (Feosol) loratadine 10 mg tablet (Claritin) 10 mg PO QDAY 01/17/25 01/17/25 History naproxen 375 mg tablet 750 mg PO QDAY 01/17/25 01/17/25 H istory pantoprazole 40 mg tablet,delayed 20 mg PO DAILY 01/17/25 01/17/25 History release sodium sul 1.479 gram-potas ch See Rx Instructions PO PER PKG DIR 01/17/25 01/17/25 Rx 0.188 gram-magnes sul 0.225 gram #24 tabs tablet (Sutab) Nurse's Note: Hemoglobin is too low to give blood. Blood work that PCP did came back anemic. Started iron a few days ago. [facility] Medical History Seasonal allergies History of gastroesophageal reflux (GERD) Hypertension History of fracture of arm Surgical History History of wisdom tooth extraction Family History Father Brain cancer Lung cancer Grandmother Brain cancer Other Heart disease Hypertension Social History Smoking Status: Former smoker alcohol intake: current alcohol intake frequency: a few times a week Alcohol type: beer what type of physical activity do you participate in: walking and bicycling frequency: daily HPI HPI Chief Complaint: anemia Details: 44-year-old male presents for initial consultation of new onset iron deficiency without overt anemia with a history of eosinophilic esophagitis and reflux. I have reviewed primary care records which indicate he had a negative Cologuard at 43 years old. Labs completed 01/11/2025 reveal vitamin B12 of 326, ferritin 15, iron 30 with 7% saturation, folate 5.86, hemoglobin 13, MCV 79.8. Esophagram: 11/29/2020 Minimal GE reflux otherwise unremarkable study Recently started on Fe supplement - was refused for blood donation - April 2024 HGB 14.3 - December 2023 HGB 14.9 - he is on Budesonide swallow for EoE, daily since 2020, prescribed by an shuttle filler - denies ever having trouble swallowing Melena: denies Hematochezia: denies Hematuria: denies Hematemesis: denies Epistaxis: denies HB: controlled with pantoprazole 20mg daily Weight loss: denies Fevers: denies Night sweats: denies Kidney disease: denies NSAIDS: Naproxen daily Anticoagulants: denies Bruising: mild Fatigue: denies Vegetarian: denies, does not eat a lot of red meat Blood donation: last donation August 2024, was declined to donate blood December 2024 SOB: denies ABD pain: denies - H/O gastrointestinal surgeries (Gastric Bypass): COLON: EGD: (Celiac labs/Bx) 2020 for GERD - Family h/o celiac disease: denies - He is a former smoker and consumes alcohol minimally a few times a week. He has a history of hip surgeries, including two labrum repairs and a microfracture. Attestation: Documentation on this patient encounter was supported using ambient scribe technology/ voice AI technology. The patient consented to recording for the purpose of documenting the encounter. Provider reviewed content of the generated note prior to signature. ROS Const Constitutional: No fatigue, fever(s) or weight change ENT ENT: No difficulty swallowing Gastro GI: No abdominal pain, belchin (more content not included)... Normal [facility] Absolute lymphocyte countOrd ered By: Jasmyn Packer on 01-11-2025 Lymphocytes Auto (Unsp spec) [#/Vol] 1.47 10*3/uL 0.83-4.51 [facility] Absolute neutrophil countOrd ered By: Jasmyn Packer on 01-11-2025 Neutrophils (Bld) [#/Vol] 2.3 10*3/uL 2.0-7.7 [facility] Automated lymphocyte count a s percentage of total leukocytesOrdered By: Jasmyn Packer on 01-11-2025 Lymphocytes/100 WBC Auto (Unsp spec) 33.9 % 19-41 [facility] Basophil percentageOrdered B y: Jasmyn Packer on 01-11-2025 Basophils/100 WBC (Bld) 0.5 % 0-1 [facility] CBC W/Diff, Automatedon Absolute Lymph 1.47 X10 3/uL Normal 0.83-4.51 [facility] Comment on above: Performed By: #### L 506.0200, L100.0100, L503.6550, L503.6030, L100.9950, L503.0106 #### [facility] [address] [place], [address] Absolute Neut 2.3 X10 3/uL Normal 2.0-7.7 [facility] Comment on above: Performed By: #### L 506.0200, L100.0100, L503.6550, L503.6030, L100.9950, L503.0106 #### [facility] [address] [place], [address] Basophils/100 WBC (Bld) 0.5 % Normal 0-1 [facility] Comment on above: Performed By: #### L 506.0200, L100.0100, L503.6550, L503.6030, L100.9950, L503.0106 #### [facility] [address] [place], [address] Eosinophils/100 WBC (Bld) 1.6 % Normal 0-5 [facility] Comment on above: Performed By: #### L 506.0200, L100.0100, L503.6550, L503.6030, L100.9950, L503.0106 #### [facility] [address] [place], [address] Erythrocyte distribution width (RBC) [Ratio] 18.1 % High 11.6-14.6 [facility] Comment on above: Performed By: #### L 506.0200, L100.0100, L503.6550, L503.6030, L100.9950, L503.0106 #### [facility] [address] [place], [address] Hematocrit (Bld) [Volume fraction] 40.0 % Normal 40-54 [facility] Comment on above: Performed By: #### L 506.0200, L100.0100, L503.6550, L503.6030, L100.9950, L503.0106 #### [facility] [address] [place], [address] Hemoglobin (Bld) [Mass/Vol] 13.0 g/dL Normal 13.0-16.5 [facility] Comment on above: Performed By: #### L 506.0200, L100.0100, L503.6550, L503.6030, L100.9950, L503.0106 #### [facility] [address] [place], [address] IG% 0.200 Normal 0.0-0.9 [facility] Comment on above: Result Comment: IG% - Immature Granulocytes (promyelocytes, myelocytes and metamyelocytes) > 1% indicates that a LEFT SHIFT is Present. Performed By: #### L 506.0200, L100.0100, L503.6550, L503.6030, L100.9950, L503.0106 #### [facility] [address] [place], [address] Lymphocytes/100 WBC (Bld) 33.9 % Normal 19-41 [facility] Comment on above: Performed By: #### L 506.0200, L100.0100, L503.6550, L503.6030, L100.9950, L503.0106 #### [facility] [address] [place], [address] MCH (RBC) [Entitic mass] 25.9 pg Low 27.0-32.0 [facility] Comment on above: Performed By: #### L 506.0200, L100.0100, L503.6550, L503.6030, L100.9950, L503.0106 #### [facility] [address] [place], [address] MCHC (RBC) [Mass/Vol] 32.5 g/dL Normal 32-36 [facility] Comment on above: Performed By: #### L 506.0200, L100.0100, L503.6550, L503.6030, L100.9950, L503.0106 #### [facility] [address] [place], [address] MCV (RBC) [Entitic vol] 79.8 fL Low 80-94 [facility] Comment on above: Performed By: #### L 506.0200, L100.0100, L503.6550, L503.6030, L100.9950, L503.0106 #### [facility] [address] [place], [address] Monocytes/100 WBC (Bld) 9.9 % Normal 0-10 [facility] Comment on above: Performed By: #### L 506.0200, L100.0100, L503.6550, L503.6030, L100.9950, L503.0106 #### [facility] [address] [place], [address] Neutrophils/100 WBC (Bld) 53.9 % Normal 47-70 [facility] Comment on above: Performed By: #### L 506.0200, L100.0100, L503.6550, L503.6030, L100.9950, L503.0106 #### [facility] [address] [place], [address] Nucleated RBC (Bld) [#/Vol] 0 10*3/uL Normal 0-5 [facility] Comment on above: Performed By: #### L 506.0200, L100.0100, L503.6550, L503.6030, L100.9950, L503.0106 #### [facility] [address] [place], [address] Platelet mean volume (Bld) [Entitic vol] 9.6 fL Normal 6.2-12.0 [facility] Comment on above: Performed By: #### L 506.0200, L100.0100, L503.6550, L503.6030, L100.9950, L503.0106 #### [facility] [address] [place], [address] Platelets (Bld) [#/Vol] 367 10*3/uL Normal 150-450 [facility] Comment on above: Performed By: #### L 506.0200, L100.0100, L503.6550, L503.6030, L100.9950, L503.0106 #### [facility] [address] [place], [address] RBC (Bld) [#/Vol] 5.01 10*6/uL Normal 4.6-6.2 [facility] Comment on above: Performed By: #### L 506.0200, L100.0100, L503.6550, L503.6030, L100.9950, L503.0106 #### [facility] [address] [place], [address] RDW SD 52.2 fl High 35.1-43.9 [facility] Comment on above: Performed By: #### L 506.0200, L100.0100, L503.6550, L503.6030, L100.9950, L503.0106 #### [facility] [address] [place], [address] WBC (Bld) [#/Vol] 4.3 10*3/uL Low 4.4-11.0 [facility] Comment on above: Performed By: #### L 506.0200, L100.0100, L503.6550, L503.6030, L100.9950, L503.0106 #### [facility] [address] [place], [address] Eosinophil percentageOrdered By: Jasmyn Packer on 01-11-2025 Eosinophils/100 WBC (Bld) 1.6 % 0-5 [facility] Erythrocyte distribution wid th ratioOrdered By: Jasmyn Packer on 01-11-2025 Erythrocyte distribution width (RBC) [Ratio] 18.1 % High 11.6-14.6 [facility] Erythrocyte distribution wid th standard deviationOrdered By: Jasmyn Packer on 01-11-2025 Erythrocyte distribution width (RBC) [Ratio] 52.2 fl High 35.1-43.9 [facility] Ferritinon 01-11-2025 Ferritin [Mass/Vol] 15 ng/mL Low 37-417 [facility] Comment on above: Performed By: #### L 506.0200, L100.0100, L503.6550, L503.6030, L100.9950, L503.0106 #### [facility] [address] [place], [address] Folate [Moles/volume] in Ser um or PlasmaOrdered By: Jasmyn Packer on 01-11-2025 Folate [Moles/Vol] 5.86 ng/mL 4.60-34.80 [facility] Folates,Serum (Folic Acid)on 01-11-2025 FOLATES,SERUM 5.86 ng/mL Normal 4.60-34.80 [facility] Comment on above: Order Comment: N Performed By: #### L 506.0200, L100.0100, L503.6550, L503.6030, L100.9950, L503.0106 #### [facility] [address] [place], [place], [id number] (182) Hematocrit Auto (Bld) [Volum e fraction]Ordered By: Jasmyn Packer on 01-11-2025 Hematocrit (Bld) [Volume fraction] 40.0 % 40-54 [facility] Hemoglobin measurementOrdere d By: Jasmyn Packer on 01-11-2025 Hemoglobin (Bld) [Mass/Vol] 13.0 g/dL 13.0-16.5 [facility] Immature granulocytes/100 WB C Auto (Bld)Ordered By: Jasmyn Packer on 01-11-2025 Immature granulocytes/100 WBC (Bld) 0.200 % 0.0-0.9 [facility] Comment on above: IG% - Immature Granu locytes (promyelocytes, myelocytes and metamyelocytes) > 1% indicates that a LEFT SHIFT is Present. Iron measurement (mass/mass) Ordered By: Jasmyn Packer on 01-11-2025 Iron (Unsp spec) [Mass/Mass] 30 ug/dL Low 65-175 [facility] Iron+Iron Binding Capacityon 01-11-2025 Iron [Mass/Vol] 30 ug/dL Low 65-175 [facility] Comment on above: Performed By: #### L 506.0200, L100.0100, L503.6550, L503.6030, L100.9950, L503.0106 #### [facility] [address] [place], [address] IRON SATURATION 7.0 Low 9-55 [facility] Comment on above: Performed By: #### L 506.0200, L100.0100, L503.6550, L503.6030, L100.9950, L503.0106 #### [facility] [address] [place], [address] TIBC 448 ug/dL Normal 250-450 [facility] Comment on above: Performed By: #### L 506.0200, L100.0100, L503.6550, L503.6030, L100.9950, L503.0106 #### [facility] [address] [place], [address] UIBC 418 ug/dL Normal 228-428 [facility] Comment on above: Performed By: #### L 506.0200, L100.0100, L503.6550, L503.6030, L100.9950, L503.0106 #### [facility] [address] [place], [address] MCV (mean corpuscular volume ) determinationOrdered By: Jasmyn Packer on 01-11-2025 MCV (RBC) [Entitic vol] 79.8 fL Low 80-94 [facility] Mean corpuscular hemoglobin (MCH) determinationOrdered By: Jasmyn Packer on 01-11-2025 MCH (RBC) [Entitic mass] 25.9 pg Low 27.0-32.0 [facility] Mean corpuscular hemoglobin concentration (MCHC) determinationOrdered By: Jasmyn Packer on 01-11-2025 MCHC (RBC) [Mass/Vol] 32.5 g/dL 32-36 [facility] Mean platelet volume determi nationOrdered By: Jasmyn Pacekr on 01-11-2025 Platelet mean volume (Bld) [Entitic vol] 9.6 fL 6.2-12.0 [facility] Monocyte percentageOrdered B y: Jasmyn Packer on 01-11-2025 Monocytes/100 WBC (Bld) 9.9 % 0-10 [facility] Neutrophil percentageOrdered By: Jasmyn Ochoa on 01-11-2025 Neutrophils/100 WBC (Bld) 53.9 % 47-70 [facility] No Panel InformationOrdered By: Jasmyn Packer on 01-11-2025 Unsaturated Iron Binding Capacity 418 ug/dL 228-428 [facility] Nucleated red blood cell per centageOrdered By: Jasmyn Ochoa on 01-11-2025 Nucleated RBC/100 WBC (Bld) [Ratio] 0 % 0-5 [facility] Platelet countOrdered By: Alejandro renetta Ochoa on 01-11-2025 Platelets (Bld) [#/Vol] 367 10*3/uL 150-450 [facility] RBC Auto (Bld) [#/Vol]Ordere d By: Jasmyn Packer on 01-11-2025 RBC (Bld) [#/Vol] 5.01 10*6/uL 4.6-6.2 [facility] Retic Panelon 01-11-2025 IM RET FRACTION 8.70 Normal 3.00-15.90 [facility] Comment on above: Performed By: #### L 506.0200, L100.0100, L503.6550, L503.6030, L100.9950, L503.0106 #### [facility] [address] [place], [place] [address], [address] RET-HE 31.9 pg Normal 30-35 [facility] Comment on above: Performed By: #### L 506.0200, L100.0100, L503.6550, L503.6030, L100.9950, L503.0106 #### [facility] [address] [place], [place], [id number] Retic Count 0.67 Normal 0.5-1.5 [facility] Comment on above: Performed By: #### L 506.0200, L100.0100, L503.6550, L503.6030, L100.9950, L503.0106 #### [facility] [address] [place], [address] Reticulocyte hemoglobin equi valent (RET-He) measurementOrdered By: Jasmyn Packer on 01-11-2025 Hemoglobin (Reticulocytes) [Entitic mass] 31.9 pg 30-35 [facility] Reticulocytes Auto (Bld) [#/ Vol]Ordered By: Jasmyn Packer on 01-11-2025 Reticulocytes/100 RBC (Bld) 0.67 % 0.5-1.5 [facility] Serum or plasma ferritin brittany surement (mass/volume)Ordered By: Jasmyn Packer on 01-11-2025 Ferritin [Mass/Vol] 15 ng/mL Low 37-417 [facility] Serum or plasma iron saturat ion measurement (mass fraction)Ordered By: Jasmyn Packer on 01-11-2025 Iron saturation [Mass fraction] 7.0 % Low 9-55 [facility] Vitamin B12on 01-11-2025 Cobalamin (Vitamin B12) [Mass/Vol] 326 pg/mL Normal 180-914 [facility] Comment on above: Performed By: #### L 506.0200, L100.0100, L503.6550, L503.6030, L100.9950, L503.0106 #### [facility] [address] [place], [address] Vitamin B12 ser/plasOrdered By: Jasmyn Packer on 01-11-2025 Cobalamin (Vitamin B12) [Mass/Vol] 326 pg/mL 180-914 [facility] White blood cell (WBC) count Ordered By: Jasmyn Packer on 01-11-2025 WBC (Bld) [#/Vol] 4.3 10*3/uL Low 4.4-11.0 [facility] Chiropractic Reporton 2023 Chiropractic Report [facility] [address] [place] [id number] OFFICE VISIT Date of Service: 04/20/24 MR#: [id number] Acct: [id number] Name: MARIO RIVERA Rep #: [id number] : 1980 Provider: ADY Powers Age/Sex: 43/M Location: [facility] [place] Status: Signed Intake Vital Signs 04/08/24 14:06 Height 5 ft 7 in BP 154/98 H Intake Visit Reasons: Back pain Chief Complaint: L hip/Low Back Pain Is patient in pain?: Yes Pain scale (1-10): 6 Allergies No Known Allergies Allergy (Verified 04/20/24 15:35) PFSH Medical History Seasonal allergies History of gastroesophageal reflux (GERD) Hypertension History of fracture of arm Surgical History History of wisdom tooth extraction Family History Father Brain cancer Lung cancer Grandmother Brain cancer Other Heart disease Hypertension Social History Smoking Status: Former smoker alcohol intake: current alcohol intake frequency: a few times a week Alcohol type: beer what type of physical activity do you participate in: walking and bicycling frequency: daily HPI Back pain Chief Complaint: L hip/low back Visit Number: 3 Details: Mario is a 43 y/o male here for a follow up of L low back/ L hip pain. Pt. advises he has still not had any change in discomfort level since his last visit. He states that the pain is still constant and feels like a deep burning/cramping ache. Rates his pain at a 6/10 today. He states it is does not improve with position changes, denies new injury. He has seen his surgeon from the [facility] and he is scheduled for an MRI on . Pt. states chiropractic adjustments have been helpful in the past. Onset: 03/25/24 Location: left hip/low back Duration: frequent Aggravating or associated factors: ADL's Relieving factors: chiro Pain Quality: aching, dull, burning and sharp Exam Musc General: Yes normal posture, normal gait and joint tenderness; No muscle weakness or decreased range of motion Thoracic/Lumber: No thoracic and lumbar spine normal to inspection (R short leg-1in), Yes paraspinal tenderness bilaterally in the mid thoracic and on the left greater than right (lower lumbopelvic, L Vastus lateralis/biceps femoris), Yes thoraco-lumbar spasm bilaterally (trap) in the upper thoracic and in the mid thoracic and on the left greater than right (L Vastus lateralis/biceps femoris, paraspinal L3-L5) and Yes misalignment T6, T7, T8, L3, L4, L5 and LIL Sacroiliac joints: on the left tender to palpation Office Procedures Procedures - Chiropractic Procedures Manipulation: Lumbar L4, Thoracic T5 and Pelvis LIL Manipulation: 3-4 regions Electronic Stimulation: Yes Electrical Stimulation: Lumbar 15 mins (15) mA Therapy Performed by:: Dr. Viji Pope DC Patient Response: positive Assessment and Plan Assessment and Plan (1) Segmental and somatic dysfunction of thoracic region: Status: Acute (2) Segmental and somatic dysfunction of lumbar region: Status: Acute (3) Segmental and somatic dysfunction of pelvic region: Status: Acute (4) Left hip pain: Status: Acute Orders: Orders Chiropractic Treatments 04/20/24 M99.01 - Segmental and somatic dysfunction of cervical region, M99.02 - Segmental and somatic dysfunction of thoracic region, M99.03 - Segmental and somatic dysfunction of lumbar region, M99.05 - Segmental and somatic dysfunction of pelvic region Plan Patient was treated without incident. No improvement thus far. He is having a L hip MRI on Friday to identify underlying conditions. Plan Details Goals Barriers: Goals Decrease spasm Improve ROM Improve intersegmental motion Improve ability to perform ADLs Barriers Previous L hip labral tear L5/S1 disc degeneration Follow Up: PRN Coding Level of Care Code No Charge Diagnoses Segmental and somatic dysfunction of thoracic region M99.02 Segmental and somatic dysfunction of lumbar region M99.03 Segmental and somatic dysfunction of pelvic region M99.05 Left hip pain M25.552 CPT Codes Procedures - Electronic Stimulation: Yes (29607) Procedures - Manipulation: 3-4 regions (22391) 04/21/24 0909 Date Viji Yin Signature: Date (if applicable) CC: Normal [facility] Chiropractic Reporton 2023 Chiropractic Report [facility] [address] [place] [address] OFFICE VISIT Date of Service: 04/13/24 MR#: [id number] Acct: [id number] Name: AUGUSTMARIO COYNE GIANNI Rep #: [id number] : 1980 Provider: ADY Powers Age/Sex: 43/M Location: [facility] [place] Status: Signed Intake Vital Signs 04/08/24 14:06 Height 5 ft 7 in BP 154/98 H Intake Visit Reasons: Back pain Chief Complaint: Mid and Low Back Pain Is patient in pain?: Yes Pain scale (1-10): 7 Allergies No Known Allergies Allergy (Verified 04/13/24 16:19) [facility] Medical History Seasonal allergies History of gastroesophageal reflux (GERD) Hypertension History of fracture of arm Surgical History History of wisdom tooth extraction Family History Father Brain cancer Lung cancer Grandmother Brain cancer Other Heart disease Hypertension Social History Smoking Status: Former smoker alcohol intake: current alcohol intake frequency: a few times a week Alcohol type: beer what type of physical activity do you participate in: walking and bicycling frequency: daily Problems and Co-Morbidities Active and Suspected Problems Segmental and somatic dysfunction of cervical region (Acute) Segmental and somatic dysfunction of pelvic region (Acute) Segmental and somatic dysfunction of lumbar region (Acute) Segmental and somatic dysfunction of thoracic region (Acute) Past Medical Illness Medical History Seasonal allergies History of gastroesophageal reflux (GERD) Hypertension History of fracture of arm Past Surgical History Surgical History History of wisdom tooth extraction Surgical History: arthscropcy, hip Family History Summary Family History Father Brain cancer Lung cancer Grandmother Brain cancer Other Heart disease Hypertension HPI Back pain Chief Complaint: L hip/low back Visit Number: 2 Details: Mario is a 43 y/o male here for a follow up of L low back/hip pain. Pt. advises he has not had any change in discomfort level since his last visit. He states that the pain is still fairly constant and feels like a deep burning ache. He states that he continues having some numbness in his left calf. He states it is does not improve with position changes, denies new injury. He has seen his surgeon from the [facility] and he is scheduled for an MRI on . Pt. states chiropractic adjustments have been helpful in the past. Onset: 03/25/24 Location: left hip/low back Duration: frequent Aggravating or associated factors: ADL's Relieving factors: chiro Pain Quality: aching, dull, burning and sharp Exam Musc General: Yes normal posture, normal gait and joint tenderness; No muscle weakness or decreased range of motion Thoracic/Lumber: No thoracic and lumbar spine normal to inspection (R short leg-1in), Yes paraspinal tenderness on the left greater than right (lower lumbopelvic, L Vastus lateralis/biceps femoris), Yes thoraco-lumbar spasm bilaterally (trap) in the upper thoracic and in the mid thoracic and on the left greater than right (L Vastus lateralis/biceps femoris, paraspinal L3-L5) and Yes misalignment L3, L4, L5 and LIL Sacroiliac joints: on the left tender to palpation Office Procedures Procedures - Chiropractic Procedures Manipulation: Lumbar L4 and Pelvis LIL Manipulation: 1-2 regions Theraputic Ultrasound: Yes Therapeutic Ultrasound, 1 or more areas; ea 15 mins: Lumbar 15 mins (1.2) garvin Therapy Performed by:: Dr. Viji Pope DC Patient Response: positive Assessment and Plan Assessment and Plan (1) Segmental and somatic dysfunction of lumbar region: Status: Acute (2) Segmental and somatic dysfunction of pelvic region: Status: Acute (3) Left hip pain: Status: Acute Orders: Orders Chiropractic Treatments 04/13/24 M99.01 - Segmental and somatic dysfunction of cervical region, M99.02 - Segmental and somatic dysfunction of thoracic region, M99.03 - Segmental and somatic dysfunction of lumbar region, M99.05 - Segmental and somatic dysfunction of pelvic region Plan Details Goals Barriers: Goals Decrease spasm Improve ROM Improve intersegmental motion Improve ability to perform ADLs Barriers Previous L hip labral tear L5/S1 disc degeneration Follow Up: PRN Coding Level of Care Code No Charge Diagnoses Segmental and somatic dysfunction of lumbar region M99.03 Segmental and s (more content not included)... Normal [facility] Chiropractic Reporton 2023 Chiropractic Report [facility] [address] [place] [address] OFFICE VISIT Date of Service: 04/08/24 MR#: [id number] Acct: [id number] Name: MARIO RIVERA Rep #: [id number] : 1980 Provider: ADY Powers Age/Sex: 43/M Location[place] [facility] [place] Status: Signed Intake Vital Signs 04/30/23 09:38 04/08/24 14:06 Height 5 ft 7 in 5 ft 7 in BP 154/98 H Intake Visit Reasons: REEVAL Chief Complaint: Mid and Low Back Pain Is patient in pain?: Yes (left low back/hip ) Pain scale (1-10): 6 Allergies No Known Allergies Allergy (Verified 04/08/24 14:14) Medications ???Medication ???Instructions ???Recorded ???Confirmed ???Type amlodipine 5 mg tablet 5 mg PO DAILY 03/08/21 04/08/24 History pantoprazole 40 mg tablet,delayed 40 mg PO DAILY 03/08/21 04/08/24 History release losartan 25 mg tablet mg PO 04/30/23 04/08/24 History PFSH Medical History Seasonal allergies History of gastroesophageal reflux (GERD) Hypertension History of fracture of arm Surgical History History of wisdom tooth extraction Family History Father Brain cancer Lung cancer Grandmother Brain cancer Other Heart disease Hypertension Social History Smoking Status: Former smoker alcohol intake: current alcohol intake frequency: a few times a week Alcohol type: beer what type of physical activity do you participate in: walking and bicycling frequency: daily HPI REEVAL Chief Complaint: left low back Visit Number: 1 Details: Mario is a 43 y/o male here for a re-evaluation of low back pain. Pt. advises he had a left Labrum repair in September 2023. He states 2 weeks ago he began to experience an intense pinching, burning, stabbing pain in his left low back/ hip area while he was cutting down tall grasses. He states he was barely able to walk on Friday. He rates his pain 6/10 today. He states he is having some numbness in his left calf today and has had some rare left foot numbness. Tino stated that the pain reminds him of his labral tear. He states it is does not improve with position changes, denies new injury. He has seen his surgeon from the [facility] and he is scheduled for an MRI on . Pt. states chiropractic adjustments have been helpful in the past. Onset: 03/25/24 Location: left low back Duration: frequent Aggravating or associated factors: ADLs Pain Quality: aching, dull, burning and sharp Exam Musc General: Yes normal posture, normal gait and joint tenderness; No muscle weakness or decreased range of motion Thoracic/Lumber: No thoracic and lumbar spine normal to inspection (R short leg-1in), Yes Lasegue's sign positive on the left, Yes paraspinal tenderness on the left greater than right (lower lumbopelvic, L Vastus lateralis/biceps femoris), Yes thoraco-lumbar spasm bilaterally (trap) in the upper thoracic and in the mid thoracic and on the left greater than right (L Vastus lateralis/biceps femoris, paraspinal L3-L5) and Yes misalignment L3, L4, L5 and LIL Sacroiliac joints: on the left tender to palpation Neuro General: patient alert, patient awake, patient oriented x3, gait normal, normal light touch, pain and propioception and no focal motor deficits Cranial Nerves: CN's II-XI intact bilaterally Cognition: normal cognition Speech: speech normal Gait: normal gait Motor: strength abnormal left proximal lower extremity abduction (L hip) 4 / 5 Sensory Exam: no sensory deficits noted DTR's: Rt Patellar: 2+, Lt Patellar: 2+, Rt Ankle: 2+ and Lt Ankle: 2+ Ortho Test CERVICAL THORACIC LUMBAR Kemps: Negative Valsalvas: Negative SLR: Negative Iliac Compression: Positive and Left Left Hip Contralateral Normal: Yes Hip: Present tender to palpate - flexion: 110 extension: 10 internal rotation @90 degree flexion: 25 external rotation @90 degree extension: 30 abduction: 40 adduction: 20 Impingement Test: Impingement Test: 2 Special Tests: Gordo test and TTP [place] Office Procedures Procedures - Chiropractic Procedures Manipulation: Lumbar L4 and Pelvis LIL Manipulation: 1-2 regions Theraputic Ultrasound: Yes Therapeutic Ultrasound, 1 or more areas; ea 15 mins: Other (L hip) 15 mins (1.2) garvin Therapy Performed by:: Humera Parr Patient Response: no change Assessment and Plan Assessment and Plan (1) Segmental and somatic dysfunction of lumbar region: Status: Acute (2) Segmental and somatic dysfunction of pelvic region: Status: Acute (3) Left hip pain: Status: Acute Orders: Orders Chiropractic Treatments 04/08/24 M54.16 - Radiculopathy, lumbar region, M99.01 - Seg (more content not included)... Normal [facility] Absolute lymphocyte countOrd ered By: Jasmyn Packer on 06-10-2023 Lymphocytes Auto (Unsp spec) [#/Vol] 2.33 10*3/uL 0.83-4.51 [facility] Basophil percentageOrdered B y: Jasmyn Packer on 06-10-2023 Basophils/100 WBC (Bld) 0.5 % 0-1 [facility] Bilirubin [Mass/Vol] 1.90 mg/dL 0.20-1.00 [facility] Comment on above: For patients on eltr ombopag therapy, use of Dimension [place] TBIL is not recommended. Chloride [Moles/Vol] 104 mmol/L 98-107 [facility] Eosinophils/100 WBC (Bld) 2.2 % 0-5 [facility] Glucose [Mass/Vol] 85 mg/dL 74-106 [facility] Neutrophils (Bld) [#/Vol] 3.2 10*3/uL 2.0-7.7 [facility] Neutrophils/100 WBC (Bld) 50.6 % 47-70 [facility] Potassium [Moles/Vol] 4.0 mmol/L 3.5-5.1 [facility] Protein [Mass/Vol] 7.5 g/dL 6.4-8.2 [facility] Sodium [Moles/Vol] 139 mmol/L 136-145 [facility] WBC (Bld) [#/Vol] 6.3 10*3/uL 4.4-11.0 [facility] Blood erythrocytes count (nu mber/volume)Ordered By: Jasmyn Packer on 06-10-2023 RBC (Bld) [#/Vol] 4.56 10*6/uL 4.6-6.2 [facility] Blood hemoglobin measurement (mass/volume)Ordered By: Jasmyn Packer on 06-10-2023 Hemoglobin (Bld) [Mass/Vol] 13.0 g/dL 13.0-16.5 [facility] Blood lymphocytes/100 leukoc ytesOrdered By: Jasmyn Packer on 06-10-2023 Lymphocytes/100 WBC (Bld) 37.2 % 19-41 [facility] Blood monocytes/100 leukocyt esOrdered By: Jasmyn Packer on 06-10-2023 Monocytes/100 WBC (Bld) 9.3 % 0-10 [facility] Blood platelet mean volumeOr dered By: Jasmyn Packer on 06-10-2023 Platelet mean volume (Bld) [Entitic vol] 10.1 fL 6.2-12.0 [facility] Determination of erythrocyte mean corpuscular volume (MCV)Ordered By: Jasmyn Packer on 06-10-2023 MCV (RBC) [Entitic vol] 90.8 fL 80-94 [facility] Hematocrit Auto (Bld) [Volum e fraction]Ordered By: Jasmyn Packer on 06-10-2023 Hematocrit (Bld) [Volume fraction] 41.4 % 40-54 [facility] - Chemistry and C hemistry - challengeOrdered By: Jasmyn Packer on 06-10-2023 ALP [Catalytic activity/Vol] 53 U/L 45-117 [facility] ALT [Catalytic activity/Vol] 28 U/L 16-61 [facility] CO2 [Moles/Vol] 29.0 mmol/L 21.0-32.0 [facility] Globulin (S) [Mass/Vol] 3.8 g/dL 2.2-4.2 [facility] Urea nitrogen/Creatinine [Mass ratio] 14.3 mg/mg 10-20 [facility] - Hematology and Cell countsOrdered By: Jasmyn Packer on 06-10-2023 Erythrocyte distribution width (RBC) [Entitic vol] 47.8 fL 35.1-43.9 [facility] Erythrocyte distribution width (RBC) [Ratio] 14.3 % 11.6-14.6 [facility] Immature granulocytes/100 WBC (Bld) 0.200 % 0.0-0.9 [facility] Comment on above: IG% - Immature Granu locytes (promyelocytes, myelocytes and metamyelocytes) > 1% indicates that a LEFT SHIFT is Present. MCH (RBC) [Entitic mass] 28.5 pg 27.0-32.0 [facility] Nucleated RBC/100 WBC (Bld) [Ratio] 0 % 0-5 [facility] MCHC Auto (RBC) [Mass/Vol]Or dered By: Jasmyn Packer on 06-10-2023 MCHC (RBC) [Mass/Vol] 31.4 g/dL 32-36 [facility] No Panel InformationOrdered By: Jasmyn Packer on 06-10-2023 Estimated GFR (MDRD) Amer 116 mL/min >60 [facility] Comment on above: GFR Calc Estimated GFR (MDRD) Non-Af Amer 96 mL/min >60 [facility] Comment on above: Non- GFR Calc Platelets bldOrdered By: Sean Packer on 06-10-2023 Platelets (Bld) [#/Vol] 275 10*3/uL 150-450 [facility] Serum or plasma albumin brian urement (mass/volume)Ordered By: Jasmyn Packer on 06-10-2023 Albumin [Mass/Vol] 3.7 g/dL 3.2-5.0 [facility] Serum or plasma albumin/glob ulin mass ratioOrdered By: Jasmyn Packer on 06-10-2023 Albumin/Globulin [Mass ratio] 1.0 {ratio} 0.9-2.4 [facility] Serum or plasma calcium brian urement (mass/volume)Ordered By: Jasmyn Packer on 06-10-2023 Calcium [Mass/Vol] 8.8 mg/dL 8.5-10.1 [facility] Serum or plasma creatinine m easurement (mass/volume)Ordered By: Jasmyn Packer on 06-10-2023 Creatinine [Mass/Vol] 0.91 mg/dL 0.70-1.30 [facility] Comment on above: The validity of the calculated GFR & GFRAA in patients over 70 years has not been determined. Clinical correlation is essential. Serum or plasma urea nitroge n measurement (mass/volume)Ordered By: Jasmyn Packer on 06-10-2023 Urea nitrogen [Mass/Vol] 13 mg/dL 7-18 [facility] Thin prep Papanicolaou smear with manual screeningOrdered By: Jasmyn Packer on 06-10-2023 Thin prep Papanicolaou smear with manual screening 17 U/L 15-37 [facility] Thin prep Papanicolaou smear with manual screening 6 5-15 [facility] Absolute lymphocyte countOrd ered By: Dr. Packer on 08-30-2022 Lymphocytes Auto (Unsp spec) [#/Vol] 1.56 10*3/uL 0.83-4.51 [facility] Basophil percentageOrdered B y: Dr. Packer on 08-30-2022 Basophils/100 WBC (Bld) 0.8 % 0-1 [facility] Bilirubin [Mass/Vol] 1.50 mg/dL 0.20-1.00 [facility] Comment on above: For patients on eltr ombopag therapy, use of Dimension [place] TBIL is not recommended. Chloride [Moles/Vol] 105 mmol/L 98-107 [facility] Eosinophils/100 WBC (Bld) 3.3 % 0-5 [facility] Glucose [Mass/Vol] 94 mg/dL 74-106 [facility] Neutrophils (Bld) [#/Vol] 1.8 10*3/uL 2.0-7.7 [facility] Neutrophils/100 WBC (Bld) 45.6 % 47-70 [facility] Potassium [Moles/Vol] 4.8 mmol/L 3.5-5.1 [facility] Protein [Mass/Vol] 7.4 g/dL 6.4-8.2 [facility] Sodium [Moles/Vol] 139 mmol/L 136-145 [facility] WBC (Bld) [#/Vol] 3.9 10*3/uL 4.4-11.0 [facility] Blood erythrocytes count (nu mber/volume)Ordered By: Dr. Packer on 08-30-2022 RBC (Bld) [#/Vol] 4.61 10*6/uL 4.6-6.2 [facility] Blood hemoglobin measurement (mass/volume)Ordered By: Dr. Packer on 08-30-2022 Hemoglobin (Bld) [Mass/Vol] 14.1 g/dL 13.0-16.5 [facility] Blood lymphocytes/100 leukoc ytesOrdered By: Dr. Packer on 08-30-2022 Lymphocytes/100 WBC (Bld) 40.0 % 19-41 [facility] Blood monocytes/100 leukocyt esOrdered By: Dr. Packer on 08-30-2022 Monocytes/100 WBC (Bld) 10.0 % 0-10 [facility] Blood platelet mean volumeOr dered By: Dr. Packer on 08-30-2022 Platelet mean volume (Bld) [Entitic vol] 10.6 fL 6.2-12.0 [facility] Determination of erythrocyte mean corpuscular volume (MCV)Ordered By: Dr. Packer on 08-30-2022 MCV (RBC) [Entitic vol] 92.6 fL 80-94 [facility] Hematocrit Auto (Bld) [Volum e fraction]Ordered By: Dr. Packer on 08-30-2022 Hematocrit (Bld) [Volume fraction] 42.7 % 40-54 [facility] Laboratory - Chemistry and C hemistry - challengeOrdered By: Dr. Packer on 08-30-2022 ALP [Catalytic activity/Vol] 57 U/L 45-117 [facility] ALT [Catalytic activity/Vol] 30 U/L 16-61 [facility] CO2 [Moles/Vol] 28.0 mmol/L 21.0-32.0 [facility] Globulin (S) [Mass/Vol] 3.6 g/dL 2.2-4.2 [facility] Urea nitrogen/Creatinine [Mass ratio] 17.1 mg/mg 10-20 [facility] - Hematology and Cell countsOrdered By: Dr. Packer on 08-30-2022 Erythrocyte distribution width (RBC) [Entitic vol] 45.6 fL 35.1-43.9 [facility] Erythrocyte distribution width (RBC) [Ratio] 13.4 % 11.6-14.6 [facility] Immature granulocytes/100 WBC (Bld) 0.300 % 0.0-0.9 [facility] Comment on above: IG% - Immature Granu locytes (promyelocytes, myelocytes and metamyelocytes) > 1% indicates that a LEFT SHIFT is Present. MCH (RBC) [Entitic mass] 30.6 pg 27.0-32.0 [facility] Nucleated RBC/100 WBC (Bld) [Ratio] 0 % 0-5 [facility] Auto (RBC) [Mass/Vol]Or dered By: Dr. Packer on 08-30-2022 MCHC (RBC) [Mass/Vol] 33.0 g/dL 32-36 [facility] No Panel InformationOrdered By: Dr. Packer on 08-30-2022 Estimated GFR (MDRD) Amer 113 mL/min >60 [facility] Comment on above: GFR Calc Estimated GFR (MDRD) Non-Af Amer 93 mL/min >60 [facility] Comment on above: Non- GFR Calc Platelets bldOrdered By: Dr. Packer on 08-30-2022 Platelets (Bld) [#/Vol] 242 10*3/uL 150-450 [facility] Serum or plasma albumin brian urement (mass/volume)Ordered By: Dr. Packer on 08-30-2022 Albumin [Mass/Vol] 3.8 g/dL 3.2-5.0 [facility] Serum or plasma albumin/glob ulin mass ratioOrdered By: Dr. Packer on 08-30-2022 Albumin/Globulin [Mass ratio] 1.1 {ratio} 0.9-2.4 [facility] Serum or plasma calcium brian urement (mass/volume)Ordered By: Dr. Packer on 08-30-2022 Calcium [Mass/Vol] 9.1 mg/dL 8.5-10.1 [facility] Serum or plasma creatinine m easurement (mass/volume)Ordered By: Dr. Packer on 08-30-2022 Creatinine [Mass/Vol] 0.93 mg/dL 0.70-1.30 [facility] Comment on above: The validity of the calculated GFR & GFRAA in patients over 70 years has not been determined. Clinical correlation is essential. Serum or plasma urea nitroge n measurement (mass/volume)Ordered By: Dr. Packer on 08-30-2022 Urea nitrogen [Mass/Vol] 16 mg/dL 7-18 [facility] Thin prep Papanicolaou smear with manual screeningOrdered By: Dr. Packer on 08-30-2022 Thin prep Papanicolaou smear with manual screening 29 U/L 15- [facility] Thin prep Papanicolaou smear with manual screening 6 5-15 [facility] Vital Signs Date Time Vital Sign Value Performing Clinician Faci lity 01-17-2025 09:08-0400 Body height 170.[address] Jasmyn Packer MD Work Phone: [facility] 01-17-2025 09:08-0400 Body mass index (BMI) [Ratio] 28.6 kg/m2 Dr. Jasmyn Packer MD Work Phone: [facility] 01-17-2025 09:08-0400 Body temperature 97.8 [degF] Dr. Jasmyn Packer MD Work Phone: [facility] 01-17-2025 09:08-0400 Body weight 83.[address] Jasmyn Packer MD Work Phone: [facility] 01-17-2025 09:08-0400 Diastolic blood pressure 96 mm[Hg] Dr. Jasmyn Packer MD Work Phone: [facility] 01-17-2025 09:08-0400 Heart rate 64 /min Dr. Jasmyn Packer MD Work Phone: [facility] 01-17-2025 09:08-0400 Respiratory rate 16 /min Dr. Jasmyn Packer MD Work Phone: [facility] 01-17-2025 09:08-0400 SaO2% (BldA) [Mass fraction] 95 % Dr. Jasmyn Packer MD Work Phone: [facility] 01-17-2025 09:08-0400 Systolic blood pressure 156 mm[Hg] Dr. Jasmyn Packer MD Work Phone: [facility] 04-30-2023 09:38-0400 Body height 170.[address] Jasmyn Pakcer Work Phone: [facility] 04-30-2023 09:18-0400 Body mass index (BMI) [Ratio] 28.2 kg/m2 Dr. Jasmyn Packer Work Phone: [facility] 04-30-2023 09:18-0400 Body weight 81.[address] Jasmyn Packer Work Phone: [facility] 04-30-2023 09:18-0400 Diastolic blood pressure 82 mm[Hg] Dr. Jasmyn Packer Work Phone: [facility] 04-30-2023 09:18-0400 Systolic blood pressure 128 mm[Hg] Dr. Jasmyn Packer Work Phone: [facility] Encounters Encounter Date Encounter Type Care Provider Facility Start: 03-10-2025 ambulatory Suresh Reyes Facility :[facility] Start: 01-17-2025 End: 01-17-2025 Patient encounter procedure Tigist VAIL -[facility] Work Phone: Start: 01-17-2025 End: 01-17-[address] Jasmyn Packer MD Work Phone: -[facility] Start: 01-11-2025 End: 01-11-[address] Jasmyn Packer MD Work Phone: -[facility] Start: 01-11-2025 End: 01-11-[address] Jasmyn Packer MD -[facility] Start: 01-11-2025 End: 01-11-2025 ambulatory Jasmyn Packer Facility:[facility] Start: 04-20-2024 End: 04-20-2024 ambulatory Jasmyn Packer Facility:[facility] Start: 04-13-2024 End: 04-13-2024 ambulatory Jasmyn Packer Facility:[facility] Start: 04-08-2024 End: 04-08-2024 ambulatory Viji Pope Facility:[facility] Start: 06-18-2023 End: 06-18-[address] Jasmyn Packer Work Phone: [facility] Work Phone: Start: 06-18-2023 End: 06-18-[address] Jasmyn Packer Work Phone: [facility] Work Phone: Start: 06-10-2023 End: 06-10-[address] Jasmyn Packer Work Phone: [facility] Work Phone: Start: 06-10-2023 End: 06-10-[address] Jasmyn Packer Work Phone: [facility] Start: 05-21-2023 End: 05-21-[address] Jasmyn Packer Work Phone: [facility] Work Phone: Start: 05-13-2023 End: 05-13-[address] Jasmyn Packer Work Phone: [facility] Work Phone: Start: 05-01-2023 Non-patient / Non-visit Dr. Jasmyn Packer Work Phone: [facility] Work Phone: Start: 04-30-2023 End: 04-30-[address] Jasmyn Packer Work Phone: [facility] Start: 08-30-2022 End: 08-30-2022 ambulatory [facility] Work Phone: Start: 08-30-2022 End: 08-30-2022 Patient encounter procedure [facility] Procedures Date Procedure Procedure Detail Performing Clinician Start: 01-11-[address]25 Imm[address] e fraction Dr. Jasmyn Packer MD Work Phone: Start: 01-11-2025 Total iron binding capacity measurement Dr. Jasmyn Packer MD Work Phone: Start: 06-18-2023 MRI arthrography of hip Dr. Jasmyn Packer Work Phone: Start: 06-18-2023 MRI of joint of lowe r extremity Dr. Jasmyn Packer Work Phone: Start: 06-18-2023 MRI of lumbar spine Dr. Jasmyn Packer Work Phone: Start: 04-30-2023 X-ray of lumbosacral spine Dr. Jasmyn Packer Work Phone: Immunizations Immunization Date Immunization Notes Care Provider Fa [facility] 12-27-2017 tetanus toxoid, redu andrew diphtheria toxoid, and acellular pertussis vaccine, adsorbed [facility] Payers Date Payer Category Payer Self-pay [id number] 2024 Unknown [id number] 2015 Private Health Insurance [id number] Unknown [facility] [id number] Unknown [id number] [id number] [id number] Unknown [id number] [id number] [id number] Unknown [id number] 2.16.8 [id number] Unknown [id number] [id number] [id number] Unknown [id number] 2.16.8 [id number] Unknown [id number] [id number] [id number] Social History Date Type Detail Facility Start: 04-02-2021 End: 05-21-2023 Tobacco smoking status COIS Unknown if ever smoked [facility] Start: 1980 Sex Assigned At Male [facility] Start: 01-17-2025 [facility] Goals Date Patient Goal Desired Activity /State Evaluation note 01-17-2025 Note Date & Type Note Facility 01-17-2025 Evaluation note Diagnosis Onset Date Resolution Eosinophilic esophagitis acute January 17, 2025 8 :43am GERD (gastroesophageal reflux disease) acute January 17, 2025 8 :43am Iron deficiency anemia acute Ju ly 2024 8:43am [facility] Work Phone: Progress note 01-17-2025 Note Date & Type Note Facility 01-17-2025 Progress note [facility] [employer] [facility] Evaluation note Note Date & Type Note Facility Evaluation note No assessment information availa [facility] Work Phone: Evaluation note Note Date & Type Note Facility Evaluation note Diagnosis Onset Date Back pain acute Lumbar radiculopathy acute Segmental and somatic dysfun ction of lumbar region acute Segmental and somatic dysfun ction of pelvic region acute Back pain acute Lumbar radiculopathy acute Segmental and somatic dysfun ction of lumbar region acute Segmental and somatic dysfun ction of pelvic region acute Segmental and somatic dysfun ction of thoracic region acute Back pain acute Lumbar radiculopathy acute Segmental and somatic dysfun ction of lumbar region acute Segmental and somatic dysfun ction of pelvic region acute Segmental and somatic dysfun ction of thoracic region acute [facility] Work Phone: Evaluation note Note Date & Type Note Facility Evaluation note Diagnosis Onset Date Resolution Eosinophilic esophagitis acute January 17, 2025 8 :43am GERD (gastroesophageal reflux disease) acute January 17, 2025 8 :43am Iron deficiency anemia acute Ju ly 2024 8:43am [facility] Work Phone: Progress note Note Date & Type Note Facility Progress note Note Date/Time January 17, 2025 9:40a m [facility] [address] [place] [address] OFFICE VISIT Date of Service: 01/17/25 MR#: [id number] Acct: [id number] Name: MARIO RIVERA Rep #: [id number] : 1980 Provider: YARED Turner Age/Sex: 44/M Location: [facility] Status: Signed Intake Vital Signs 04/08/24 14:06 01/17/25 09:08 Height 5 ft 7 in 5 ft 7 in Weight: 183 lb 2 oz BMI 28.6 BP 154/98 H 156/96 H Respiration 16 Pulse 64 Temp 97.8 F Temp Source Temporal Pulse Oximetry (%) 95 Oxygen Delivery Method room air Intake Visit Reasons: NEW Anemia / EOSINOPHILIC ESOPHAGITIS & REFLUX Chief Complaint: anemia Allergies No Known Allergies Allergy (Verified 04/20/24 15:35) Medications ?Medication ?Instructions ?Recorded ?Confirmed ?Type amlodipine 5 mg tablet 5 mg PO DAILY 03/08/2101/17 History losartan 25 mg tablet mg PO 04/30/23 01/17/25 Hist ory bee pollen 500 mg tablet 1,000 mg PO .QD 01/17/2502/04 History ferrous sulfate 325 mg (65 mg 325 mg PO QDAY 01/17/25 01/17/25 History iron) tablet (Feosol) loratadine 10 mg tablet (Claritin) 10 mg PO QDAY 01/1701/17/25 History naproxen 375 mg tablet 750 mg PO QDAY 01/17/2502/04 History pantoprazole 40 mg tablet,delayed 20 mg PO DAILY 01/1701/17/25 History release sodium sul 1.479 gram-potas ch See Rx Instructions PO PER PKG DIR 01/17/25 01/17/25 Rx 0.188 gram-magnes sul 0.225 gram #24 tabs tablet (Sutab) Nurse's Note: Hemoglobin is too low to give blood. Blood work that PCP did came back anemic. Started iron a few days ago. [facility] Medical History Seasonal allergies History of gastroesophageal reflux (GERD) Hypertension History of fracture of arm Surgical History History of wisdom tooth extraction Family History Father Brain cancer Lung cancer Grandmother Brain cancer Other Heart disease Hypertension Social History Smoking Status: Former smoker alcohol intake: current alcohol intake frequency: a few times a week Alcohol type: beer what type of physical activity do you participate in: walking and bicycling frequency: daily HPI HPI Chief Complaint: anemia Details: 44-year-old male presents for initial consultation of new onset iron deficiency without overt anemia with a history of eosinophilic esophagitis and reflux. I have reviewed primary care records which indicate he had a negative Cologuard at43 years old. Labs completed 01/11/2025 reveal vitamin B12 of 326, ferritin 15, iron 30 with 7% saturation, folate 5.86, hemoglobin 13, MCV 79.8. Esophagram: 11/29/2020 Minimal GE reflux otherwise unremarkable study Recently started on Fe supplement - was refused for blood donation - April 2024 HGB 14.3 - December 2023 HGB 14.9 - he is on Budesonide swallow for EoE, daily since 2020, prescribed by an shuttle filler - denies ever having trouble swallowing Melena: denies Hematochezia: denies Hematuria: denies Hematemesis: denies Epistaxis: denies HB: controlled with pantoprazole 20mg daily Weight loss: denies Fevers: denies Night sweats: denies Kidney disease: denies NSAIDS: Naproxen daily Anticoagulants: denies Bruising: mild Fatigue: denies Vegetarian: denies, does not eat a lot of red meat Blood donation: last donation August 2024, was declined to donate blood December 2024 SOB: denies ABD pain: denies - H/O gastrointestinal surgeries (Gastric Bypass): COLON: EGD: (Celiac labs/Bx) 2020 for GERD - Family h/o celiac disease: denies - He is a former smoker and consumes alcohol minimally a few times a week. He has a history of hip surgeries, including two labrum repairs and a microfracture. Attestation: Documentation on this patient encounter was supported using ambient scribe technology/ voice AI technology. The patient consented to recording for the purpose of documenting the encounter. Provider reviewed content of the generatednote prior to signature. ROS Const Constitutional: No fatigue, fever(s) or weight change ENT ENT: No difficulty swallowing Gastro GI: No abdominal pain, belching, bloating, change in bowel habits, change in stool character, coffee ground emesis, constipation, cramping, diarrhea, heartburn, difficulty swallowing, feeling full early, excessive flatus, incontinent of stools, Vomiting blood/hematemesis, Blood in stool, loose stools,Black,tarry stools, nausea/dyspepsia, pain with swallowing, vomiting or other Musc Musculoskeletal: Positive for stiffness; No joint pain Skin Skin: No yellowing of the eye or itchy eyes Psych Psychiatric: No anxiety and No depression Endo Endocrine: No fatigue or weight change Aller/Imm Allergy/Immunologic: No itchy eyes Henry/Lymp Hematologic/Lymphatic: No easy bleeding or easy bruising ROS Narrative - Gastrointestinal: Denies black or tarry stools, bright red blood in stool, blood in urine, and abdominal pain. Reports heartburn controlled with medication. - Respiratory: Denies shortness of breath. - Cardiovascular: Denies chest pain. - Hematologic: Denies easy bruising and fatigue. - Constitutional: Denies weight loss, fevers, and night sweats. Exam Const General: cooperative, healthy appearing, no acute distress and well developed Nutritional Appearance: average body habitus and well nourished Orientation: alert and oriented x3 [facility] Head: normocephalic Ears: hearing grossly normal bilaterally Mouth: moist mucous membranes Teeth and gingiva: dentition normal Eyes Conjunctivae: conjunctivae normal Sclera: sclerae normal Neck Neck: normal visual inspection, full ROM and trachea midline Resp Effort & Inspection: normal respiratory effort, able to speak in complete sentences and symmetric chest movement Skin General: no rashes or lesions noted and turgor normal Neuro General: patient alert and patient oriented x3 Cranial Nerves: other (CN's grossly intact, non-focal exam) Cognition: normal cognition Speech: speech normal Gait: normal gait Extrem General: normal to inspection (no edema noted) Psych Appearance: grossly normal and well kempt Affect: normal affect Attitude: cooperative Thought Process: normal Assessment and Plan Assessment and Plan (1) Iron deficiency anemia: Status: Acute Plan: The patient will undergo bidirectional endoscopy to investigate potential sources of gastrointestinal bleeding, such as gastritis, ulcers, polyps, or arteriovenous malformations. The patient has started iron supplementation and should continue this regimen, ensuring separation from pantoprazole intake to optimize absorption. (2) Eosinophilic esophagitis: Status: Acute Comment: Initially diagnosed in 2020 (records release signed for previous biopsy findings) Plan: A repeat endoscopy is planned to reassess the status of eosinophilic esophagitisand evaluate the effectiveness of the current treatment regimen, including budesonide. The patient should continue the current medication regimen, including pantoprazole and budesonide, to manage symptoms and prevent complications such as strictures. (3) GERD (gastroesophageal reflux disease): Status: Acute Plan: The patient should continue pantoprazole to manage GERD symptoms and prevent potential gastrointestinal complications from naproxen use. Medications: New sod sulf-pot chloride-mag sulf 1.479-0.188- 0.225 gram (Sutab) as directed for split dose bowel prep 24 tabs 0RF Discontinued pantoprazole Discontinued Reason: Duplicate Order 20 mg PO QDAY Plan The patient is a 44-year-old male with a history of eosinophilic esophagitis presenting with iron deficiency anemia. His hemoglobin levels have decreased from 14.9 g/dL in December 2023 to 12.7 g/dL recently, indicating a trend towards anemia. The patient has been on pantoprazole for GERD, which may mask symptoms of gastrointestinal bleeding potentially exacerbated by naproxen use. The eosinophilic esophagitis was diagnosed in 2020, and the patient has been on a regimen of pantoprazole and budesonide. The patient reports resolution of symptoms such as globus sensation with the use of budesonide. The plan includes a repeat endoscopy to assess the current status of eosinophilic esophagitis as well as new onset anemia and a colonoscopy to investigate potential sources of gastrointestinal bleeding. Patient Instructions: - Continue taking iron supplements daily, ensuring they are taken at least an hour apart from pantoprazole. - Prepare for the upcoming colonoscopy and endoscopy by following the provided instructions, including dietary restrictions and medication adjustments. - Maintain current medication regimen for eosinophilic esophagitis, including pantoprazole and budesonide. - Ensure gluten intake daily for at least two weeks before the endoscopy to ensure accurate biopsy results. - Follow-up in office post procedure. Coding Level of Care Code Off vis,new,level 4 Diagnoses Iron deficiency anemia D50.9 Eosinophilic esophagitis K20.0 GERD (gastroesophageal reflux disease) K21.9 Clinical Quality Measures Smoking Screening Smoking Status: Former smoker 01/17/25 0940 <Electronically signed by Tigist VAIL> Date _ Tigist VAIL Cosigner Signature: Date (if applicable) CC: Dr. Jasmyn Packer MD ~ [facility] Work Phone: Reason for referral (narrative) Note Date & Type Note Facility Reason for referral (narrative) No reason for referral information available [facility] Work Phone: Family History No Family History Records Found Relationship Condition Age at Onset Recorded Date/T lili Not Specified Cardiac disease Unknown Hypertension Unknown father Malignant neoplasm of brain Unknown Malignant neoplasm of lung Unknown grandmother Malignant neoplasm of brain Unknown Advance Directives No Advanced Directives Records Found Advance Directive Response Recorded Date/ Time Living Will Yes December 29, 2020 12:17pm Power of Circuit Board Inspector Yes December 29 12:17pm Advance Directive Response Recorded Date/ Time Living Will Yes April 30 8:38am Power of Circuit Board Inspector Yes April 30, 2023 8:38am Chief Complaint and Reason for Visit Chief Complaint REEVAL XRAY Back pain Back pain Reason for Visit Back pain Lumbar radiculopathy Segmental and somatic dysfunction of lumbar region Segmental and somatic dysfunction of pelvic region Back pain Lumbar radiculopathy Segmental and somatic dysfunction of lumbar region Segmental and somatic dysfunction of pelvic region Segmental and somatic dysfunction of thoracic region Back pain Lumbar radiculopathy Segmental and somatic dysfunction of lumbar region Segmental and somatic dysfunction of pelvic region Segmental and somatic dysfunction of thoracic region Chief Complaint REEVAL XRAY Back pain Back pain Other low back pain,, hip arthrogram Reason for Visit Back pain Lumbar radiculopathy Segmental and somatic dysfunction of lumbar region Segmental and somatic dysfunction of pelvic region Back pain Lumbar radiculopathy Segmental and somatic dysfunction of lumbar region Segmental and somatic dysfunction of pelvic region Segmental and somatic dysfunction of thoracic region Back pain Lumbar radiculopathy Segmental and somatic dysfunction of lumbar region Segmental and somatic dysfunction of pelvic region Segmental and somatic dysfunction of thoracic region Chief Complaint Admit Date LABS January 11, 2025 1:09p m NEW Anemia / EOSINOPHILIC ESOPHAGITIS & REFLUX January 17, 2025 8:43am Reason for Visit Admit Date Eosinophilic esophagitis January 17, 2025 8:43am GERD (gastroesophageal reflux disease) J isidoro 2024 8:43am Iron deficiency anemia January 17, 2025 8: 43am Summary Purpose Additional Source Comments Care Teams (unrecognized sec tion and content) Team Status: Active Member Role Status Dates Dr. Bart Lauren MD Family Provider Active Dr. Jasmyn Packer MD Primary Care Provider Active Team Status: Inactive Member Role Status Dates Dr. Jasmyn Packer MD Primary Care Provider, Attendin g Provider Active Team Status: Inactive Member Role Status Dates Dr. Jasmyn Packer MD Primary Care Provider, Referrin g Provider Active Dr. Viji Pope [place] Attending Provider Active Team Status: Inactive Member Role Status Dates Dr. Jasmyn Packer MD Primary Care Provider Active Dr. Kenji Leiva MD Attending Provider Active Team Status: Active Member Role Status Dates Dr. Jasmyn Packer MD Primary Care Provider Active Dr. Viji Pope [place] Attending Provider Active Team Status: Inactive Member Role Status Dates Dr. Jasmyn Packer MD Primary Care Provider Active Lopez MEDLEY PA-C Attending Provider, Referring Pr luther Active Team Status: Active Member Role/Relationship Status Dates Dr. Jasmyn Packer MD Primary Care Provider Active Team Status: Active Member Role/Relationship Status Dates Dr. Jasmyn Packer MD Primary Care Provider Active Start: January 11, 2025 Dr. Jasmyn Packer MD Attending Provider Active Start: January 11, 2025 Team Status: Inactive Member Role/Relationship Status Dates Dr. Jasmyn Packer MD Primary Care Provider Active Start: January 17, 2025 End: January 17, 2025 Dr. Jasmyn Packer MD Referring Provider Active Start: January 17, 2025 End: January 17, 2025 YARED Greenfield Attending Provider Active Start: January 17, 2025 End: January 17, 2025 Team Status: Inactive Member Role/Relationship Status Dates Dr. Jasmyn Packer MD Primary Care Provider Active Start: January 11, 2025 End: January 11, 2025 Dr. Jasmyn Packer MD Attending Provider Active Start: January 11, 2025 End: January 11, 2025 (unrecognized sect ion and content) No Status Records Found INFORMATION SOURCE (unrecogn ized section and content) DATE CREATED AUTHOR 03/09/2025 [facility] FOR RECORDS PERTAINING TO PATIENTS WHO ARE OR HAVE BEEN ENROLLED IN A CHEMICAL DEPENDENCY/SUBSTANCEABUSE PROGRAM, SOME INFORMATION MAY BE OMITTED. This clinical summary was aggregated from multiple sources. Caution should be exercised in using it in the provision of clinical care. This summary normalizes information from multiple sources, and as a consequence, information in this document may materially change the coding, format and clinical context of patient data. In addition, data may be omitted in some cases. CLINICAL DECISIONS SHOULD BE BASED ON THE PRIMARY CLINICAL RECORDS. [employer] [facility]. provides no warranty or guarantee of the accuracy or completeness of information in this document.
--- NOTE | 2025-03-10 11:12 | OP.PROVAT_ITS ---
03/10/2025 Jasmyn Packer [place] [id number] [address] Re : Upper GI endoscopy procedure for Mario Beasley Dear Dr. Packer This procedure was performed on February. My impressions and recommendations are as follows: Impressions : - Normal esophagus. - Multiple bleeding angiodysplastic lesions in the stomach. Treated with a heater probe. - No gross lesions in the entire examined duodenum. - No specimens collected. Recommendations : - Discharge patient to home. - Resume previous diet. - Continue present medications. My findings are described in the full procedure note, which is enclosed. If I can be of further assistance, please feel free to contact me at . Sincerely, Suresh Reyes, 03/10/2025 11:12:02 AM This report has been signed electronically.
--- NOTE | 2025-03-10 11:12 | OP.EGD_ITS ---
Patient Name: Mario Beasley Procedure Date: 03/10/2025 10:29 AM Date of : 1980 Age: 44 Procedure: Upper GI endoscopy Indications: Iron deficiency anemia Providers: DO Heber Putnam MD: Jasmyn Packer Medicines: Monitored Anesthesia Care Patient Profile: This is a 44 year old male. Refer to note in patient chart for documentation of history and physical. Patient has symptoms. Complications: No immediate complications. Procedure: Pre-Anesthesia Assessment: - Prior to the procedure, a History and Physical was performed, and patient medications and allergies were reviewed. The patient is competent. The risks and benefits of the procedure and the sedation options and risks were discussed with the patient. All questions were answered and informed consent was obtained. Patient identification and proposed procedure were verified by the physician in the pre-procedure area. Mental Status Examination: normal. Airway Examination: normal oropharyngeal airway and neck mobility. Respiratory Examination: clear to auscultation. CV Examination: normal. Prophylactic Antibiotics: The patient does not require prophylactic antibiotics. Prior Anticoagulants: The patient has taken no anticoagulant or antiplatelet agents. ASA Grade Assessment: II - A patient with mild systemic disease. After reviewing the risks and benefits, the patient was deemed in satisfactory condition to undergo the procedure. The anesthesia plan was to use monitored anesthesia care (MAC). Immediately prior to administration of medications, the patient was re-assessed for adequacy to receive sedatives. The heart rate, respiratory rate, oxygen saturations, blood pressure, adequacy of pulmonary ventilation, and response to care were monitored throughout the procedure. The physical status of the patient was re-assessed after the procedure. After obtaining informed consent, the endoscope was passed under direct vision. Throughout the procedure, the patient's blood pressure, pulse, and oxygen saturations were monitored continuously. The pediatric colonoscope was introduced through the mouth, and advanced to the fourth part of the duodenum. Small bowel enteroscopy was deemed necessary. The upper GI endoscopy was accomplished without difficulty. The patient tolerated the procedure well. Scope In: 10:41:19 AM Scope Out: 10:54:20 AM Total Procedure Duration Time 0 hours 13 minutes 1 second Findings: The examined esophagus was normal. Multiple 5 mm angiodysplastic lesions with bleeding were found in the gastric body. Coagulation for hemostasis using heater probe was successful. Estimated blood loss was minimal. No gross lesions were noted in the entire examined duodenum. Impression: - Normal esophagus. - Multiple bleeding angiodysplastic lesions in the stomach. Treated with a heater probe. - No gross lesions in the entire examined duodenum. - No specimens collected. Recommendation: - Discharge patient to home. - Resume previous diet. - Continue present medications. Procedure Code(s): --- Professional --- 79363, Small intestinal endoscopy, enteroscopy beyond second portion of duodenum, not including ileum; with control of bleeding (eg, injection, bipolar cautery, unipolar cautery, laser, heater probe, stapler, plasma finance manager) CPT copyright 2021 [employer]. All rights reserved. The codes documented in this report are preliminary and upon recovery room nurse review may be revised to meet current compliance requirements. Suresh Reyes DO 03/10/2025 11:12:02 AM This report has been signed electronically. Number of Addenda: 0 Note Initiated On: 03/10/2025 10:29 AM
--- NOTE | 2025-03-10 11:15 | OP.PROVAT_ITS ---
03/10/2025 Jasmyn Packer [place] [id number] [address] Re : Colonoscopy procedure for Mario Beasley Dear Dr. Packer This procedure was performed on February. My impressions and recommendations are as follows: Impressions : - One 9 mm polyp in the ascending colon, removed with a hot snare. Resected and retrieved. - Diverticulosis in the sigmoid colon, in the descending colon and at the splenic flexure. Recommendations : - Discharge patient to home. - Resume previous diet. - Continue present medications. - Await pathology results. - Repeat colonoscopy in 5 years for surveillance. My findings are described in the full procedure note, which is enclosed. If I can be of further assistance, please feel free to contact me at . Sincerely, Suresh Reyes, 03/10/2025 11:14:37 AM This report has been signed electronically.
--- NOTE | 2025-03-10 11:15 | OP.COLON_ITS ---
Patient Name: Mario Beasley Procedure Date: 03/10/2025 10:54 AM Date of : 1980 Age: 44 Procedure: Colonoscopy Indications: Screening for colorectal malignant neoplasm Providers: Suresh Reyes DO Referring MD: Jasmyn Packer Medicines: Monitored Anesthesia Care Patient Profile: This is a 44 year old male. Refer to note in patient chart for documentation of history and physical. Patient has symptoms. Last Colonoscopy: none. The patient's first colonoscopy is today. Complications: No immediate complications. Procedure: Pre-Anesthesia Assessment: - Prior to the procedure, a History and Physical was performed, and patient medications and allergies were reviewed. The patient is competent. The risks and benefits of the procedure and the sedation options and risks were discussed with the patient. All questions were answered and informed consent was obtained. Patient identification and proposed procedure were verified by the physician in the pre-procedure area. Mental Status Examination: normal. Airway Examination: normal oropharyngeal airway and neck mobility. Respiratory Examination: clear to auscultation. CV Examination: normal. Prophylactic Antibiotics: The patient does not require prophylactic antibiotics. Prior Anticoagulants: The patient has taken no anticoagulant or antiplatelet agents. ASA Grade Assessment: II - A patient with mild systemic disease. After reviewing the risks and benefits, the patient was deemed in satisfactory condition to undergo the procedure. The anesthesia plan was to use monitored anesthesia care (MAC). Immediately prior to administration of medications, the patient was re-assessed for adequacy to receive sedatives. The heart rate, respiratory rate, oxygen saturations, blood pressure, adequacy of pulmonary ventilation, and response to care were monitored throughout the procedure. The physical status of the patient was re-assessed after the procedure. After I obtained informed consent, the scope was passed under direct vision. Throughout the procedure, the patient's blood pressure, pulse, and oxygen saturations were monitored continuously. The pediatric colonoscope was introduced through the anus and advanced to the cecum, identified by appendiceal orifice and ileocecal valve. The colonoscopy was performed without difficulty. The patient tolerated the procedure well. The quality of the bowel preparation was adequate. The ileocecal valve, appendiceal orifice, and rectum were photographed. Scope In: 10:55:44 AM Scope Withdrawal Time 0 hours 7 minutes 25 seconds Scope Out: 11:05:58 AM Total Procedure Duration Time 0 hours 10 minutes 14 seconds Findings: The perianal and digital rectal examinations were normal. A 9 mm polyp was found in the ascending colon. The polyp was sessile. The polyp was removed with a hot snare. Resection and retrieval were complete. Verification of patient identification for the specimen was done. Estimated blood loss was minimal. A few small-mouthed diverticula were found in the sigmoid colon, descending colon and splenic flexure. Impression: - One 9 mm polyp in the ascending colon, removed with a hot snare. Resected and retrieved. - Diverticulosis in the sigmoid colon, in the descending colon and at the splenic flexure. Recommendation: - Discharge patient to home. - Resume previous diet. - Continue present medications. - Await pathology results. - Repeat colonoscopy in 5 years for surveillance. Procedure Code(s): --- Professional --- 92596, Colonoscopy, flexible; with removal of tumor(s), polyp(s), or other lesion(s) by snare technique CPT copyright 2021 [employer]. All rights reserved. The codes documented in this report are preliminary and upon remote inpatient coder review may be revised to meet current compliance requirements. Suresh Reyes DO 03/10/2025 11:14:37 AM This report has been signed electronically. Number of Addenda: 0 Note Initiated On: 03/10/2025 10:54 AM
--- NOTE | 2025-03-10 11:18 | PCM.POST.ANE ---
Anesthesia: Postop Eval I Current Vital Signs Temperature: 97.3 F Pulse Rate: 73 Blood Pressure: 128/92 Respiratory Rate: 16 Pulse Ox: 97 Oxygen Delivery Method: Room Air Assessment Airway patent: Yes Spontaneous unlabored respirations: Yes Mental status: Awake nausea: No Vomiting: No Anesthesia Complication: No Fluid Hydration Crystalloid volume administer (ml): 800 Total IV fluid infused: 800 Progress Note Anesthesia document: Postop Eval 1 completed: Yes
== END 2025-03-10 11:55 | disposition home or self-care (01) ==
LOC: EN 09:24 → AC 09:26
PROVIDERS: PCP Family Medicine; Referring Provider Family Medicine; Visit Provider Internal Medicine Gastroenterology
PROC: 0DJD8ZZ Inspection of Lower Intestinal Tract, Via Natural or Artificial Opening Endoscopic (ICD-10-PCS; CPT 45378; principal; 2025-03-10 10:10)
DX: Z12.11 Encounter for screening for malignant neoplasm of colon (principal); D12.0 Benign neoplasm of cecum; K57.30 Diverticulosis of large intestine without perforation or abscess without bleeding; K31.811 Angiodysplasia of stomach and duodenum with bleeding; K21.00 Gastro-esophageal reflux disease with esophagitis, without bleeding; D62 Acute posthemorrhagic anemia; I10 Essential (primary) hypertension; Z79.899 Other long term (current) drug therapy; Z87.891 Personal history of nicotine dependence
CPT/HCPCS: 45385; 43255; 88305; C1889; J2405

== ENCOUNTER → 2025-03-25 | Outpatient (CLI) | payer OTHER, SELFPAY ==
--- NOTE | 2025-03-25 14:34 | CT_ITS ---
PROCEDURE: CTA ABD/PELVIS W/WO CONTRAST 03/25/2025 REASON FOR EXAM: GI BLEED FROM ANGIODYSPLASIA TECHNIQUE: Procedure Code: [id number] Modality: CT Procedure: CTA ABD/PELVIS W/WO CONTRAST Multiplanar Sagittal and Coronal images were obtained. CONTRAST: Isovue 370 VOLUME: 100 mL One or more dose reduction techniques were used (e.g., Automated exposure control, adjustment of the mA and/or kV according to patient size, use of iterative reconstruction technique). RADIATION DOSE SUMMARY: CTDlvol: 12.27 mGy DLP: 630 mGycm COMPARISON: None. FINDINGS: No CT evidence of active bleeding during the time of the exam. Diffuse thickening of the stomach, probably gastritis. The visualized lung bases are unremarkable. Normal liver. Normal gallbladder and extrahepatic biliary system. Normal spleen. Normal pancreas. Normal bilateral adrenal glands. Normal size of the right kidney. There is no right renal mass. There are no right renal calculi. There is no right hydronephrosis. Normal visualized right ureter. Normal size of the left kidney. There is no left renal mass. There are no left renal calculi. There is no left hydronephrosis. Normal visualized left ureter. Normal small intestine. Normal colon. The appendix is visualized and appears normal. There is no demonstrated peritoneal fluid. Normal abdominal aorta. Normal inferior vena cava. Normal retroperitoneum. Normal urinary bladder. There is no pelvic mass lesion or lymphadenopathy. There is no pelvic fluid. Normal abdominal wall. Normal osseous structures. CT/CTA Abd/Pelvis W/WO Contrast IMPRESSION: No CT evidence of active bleeding during the time of the exam. Diffuse thickening of the stomach, probably gastritis. Reading Location: [place] [address]
== END | disposition home or self-care (01) ==
LOC: CT 14:33
PROVIDERS: PCP Family Medicine; Referring Provider Internal Medicine Gastroenterology; Visit Provider Internal Medicine Gastroenterology
DX: K92.2 Gastrointestinal hemorrhage, unspecified (principal)
CPT/HCPCS: 74174; Q9967

== ENCOUNTER → 2025-04-06 | Outpatient (CLI) | payer OTHER, SELFPAY ==
--- NOTE | 2025-04-06 09:30 | RAD_ITS ---
PROCEDURE: INJ/ASP ARTHUR JT SHOULD/HIP/KNEE 04/06/2025 REASON FOR EXAM: ILIOPSOAS BURSITIS OF LEFT HIP TECHNIQUE: Procedure Code: RADINJ/ASP MJ Modality: DX Procedure: INJ/ASP ARTHUR JT SHOULD/HIP/KNEE The procedure as well as the benefits and possible complications including infection and bleeding were explained to the patient. Informed consent was obtained. Radiation dose: Fluoroscopy 45 seconds.. 12.5 mGy. 1 image was submitted. The overlying skin was prepped and draped in the usual sterile fashion. Following local anesthetic application, a 22 gauge spinal needle was placed into the left hip joint. 2 cc of Isovue-300 was injected for confirmation. Following this, 40 mg of Kenalog and 1 cc of 1% lidocaine was injected as per medication order. COMPARISON: Prior study dated June 18, 2023. FINDINGS: Successful left hip injection. RAD/Inj/Asp Arthur Jt Should/Hip/Knee IMPRESSION: Successful left hip injection. Patient tolerated the procedure well. Reading Location: [facility]
--- NOTE | 2025-04-06 09:30 | RAD_ITS ---
PROCEDURE: INJ/ASP ARTHUR JT SHOULD/HIP/KNEE 04/06/2025 REASON FOR EXAM: ILIOPSOAS BURSITIS OF LEFT HIP TECHNIQUE: Procedure Code: RADINJ/ASP MJ Modality: DX Procedure: INJ/ASP ARTHUR JT SHOULD/HIP/KNEE The procedure as well as the benefits and possible complications including infection and bleeding were explained to the patient. Informed consent was obtained. Radiation dose: Fluoroscopy 45 seconds.. 12.5 mGy. 1 image was submitted. The overlying skin was prepped and draped in the usual sterile fashion. Following local anesthetic application, a 22 gauge spinal needle was placed into the left hip joint. 2 cc of Isovue-300 was injected for confirmation. Following this, 40 mg of Kenalog and 1 cc of 1% lidocaine was injected as per medication order. COMPARISON: Prior study dated June 18, 2023. FINDINGS: Successful left hip injection. RAD/Inj/Asp Arthur Jt Should/Hip/Knee IMPRESSION: Successful left hip injection. Patient tolerated the procedure well. Reading Location: [facility]
[2025-04-06] MEDS: Lidocaine 2% (5ml sdv) 5 ML VIAL.MPF INFILT (09:44)
[2025-04-06] MEDS: Lidocaine 1% (5 ml sdv) 5 ML Vial 1 ML OPERA.SITE (09:48)
== END | disposition home or self-care (01) ==
LOC: RAD 09:06
PROVIDERS: PCP Family Medicine; Referring Provider Orthopaedic Surgery Sports Medicine; Visit Provider Orthopaedic Surgery Sports Medicine
DX: M70.72 Other bursitis of hip, left hip (principal)
CPT/HCPCS: 20610; 77002

== ENCOUNTER → 2025-04-13 | Outpatient (CLI) | payer OTHER, SELFPAY ==
[2025-04-13 15:05] LABS: Hematocrit 40.4 % (40-54); Hemoglobin 14.5 g/dL (13.0-16.5); Immature Granulocytes Count 0.040 X10^3/uL (0.0-0.0); Mean Corp Hgb Conc 35.9 g/dL (32-36); Mean Corpuscular Volume 83.1 fL (80-94); Mean Platelet Vol. 9.1 fl (6.2-12.0); NRBC Flagged by Analyzer 0 % (0-5); Platelet Count 299 K/mm3 (150-450); RBC Distribution Width CV 17.2 % (11.6-14.6); RBC Distribution Width SD 51.8 fl (35.1-43.9); Red Blood Count 4.86 M/mm3 (4.6-6.2); White Blood Count 5.9 K/mm3 (4.4-11.0)
[2025-04-13 15:30] LABS: Iron 144 ug/dL (65-175); Iron Binding Capacity,Total 345 ug/dL (250-450); Iron Binding Capacity,Unsat 201 ug/dL (228-428)
== END | disposition home or self-care (01) ==
LOC: LAB 13:48
PROVIDERS: PCP Family Medicine; Referring Provider Student in an Organized Health Care Education/Training Program; Visit Provider Student in an Organized Health Care Education/Training Program
DX: K92.2 Gastrointestinal hemorrhage, unspecified (principal); K21.9 Gastro-esophageal reflux disease without esophagitis
CPT/HCPCS: 36415; 83540; 83550; 85025